=== PATIENT | female | born 1950 | race Caucasian/White ===

== ENCOUNTER 2016-09-07 16:01 | Inpatient (IN) | payer MEDICARE, OTHER ==
--- NOTE | ~2016-09-07 | CN ---
Consultation Report [facility] [address] [place]. [address] NAME: ELISA GARCIA : 48 STATUS : ADM IN PAT#: [id number] AGE: 65 ADM/REG DATE : 09/07/16 MR#: [id number] REPORT SERV DATE: 09/08/16 DICTATED BY: LARISA TALLEY IV DATE: 09/08/16 REPORT STATUS : Draft TRANSCRIBED BY: MODAlfredo DATE: 09/08/16 PULMONARY CONSULTATION. DATE OF CONSULTATION: 09/08/2016 REASON FOR REQUEST: Lung mass. HISTORY OF PRESENT ILLNESS: History obtained from the records and from the patient. Ms. Garcia is a 65-year-old female with a history of COPD; obstructive sleep apnea, on oxygen; coronary artery disease; ischemic cardiomyopathy with ejection fraction 25%; paroxysmal atrial fibrillation, on Coumadin; hypothyroidism; tobacco dependency; cerebrovascular disease; and chronic hypotension, on midodrine, who was admitted with increased shortness of breath with findings of a lung mass with obstruction of the right upper lobe. The patient has had 30 pounds of weight loss since April. She has had a cough intermittently productive of white phlegm over the last several weeks with increasing shortness of breath for the last several days. She presented to the emergency room, where she was found to have a collapse of the right upper lobe with subsequent CT scan demonstrating soft tissue density throughout the right upper lobe with a very large mediastinal adenopathy. The patient denies fevers, chills, sweats, or hemoptysis. She is on Incruse with which she is compliant daily. She uses nebulizer nightly. She does complain of recent dizziness, though no other specific neurologic problems. She does not undergo lung cancer screening chest CT scans with her most recent chest x-ray in 2014. The patient carries a diagnosis of obstructive sleep apnea, though states she was never given CPAP therapy. She is on oxygen at nighttime. PULMONARY HISTORY: Remarkable for no history of childhood asthma. She has adult COPD with PFTs demonstrating mixed restrictive and obstructive disease with her most recent PFT in 2014 demonstrating FEV1 of 1.1 L or 45% of predicted with a DLCO of 36% of predicted. She has had pneumonia in the past. She has a 75-pack year smoking history, now smoking a pack of cigarettes a day. She is up to date on the seasonal influenza vaccine though has never received the Prevnar-13 vaccination. PAST MEDICAL HISTORY: 1. Chronic obstructive pulmonary disease. 2. Obstructive sleep apnea, on oxygen. 3. Paroxysmal atrial fibrillation. 4. Coronary artery disease. 5. Ischemic cardiomyopathy with an ejection fraction of 25%. 6. Hypothyroidism. 7. Tobacco dependency. 8. Peripheral arterial disease. 9. Chronic hypotension. Consultation Report [facility] [address] [place]. [address] NAME: ELISA GARCIA : 48 STATUS : ADM IN [facility]#: [id number] AGE: 65 ADM/REG DATE : 09/07/16 MR#: [id number] REPORT SERV DATE: 09/08/16 DICTATED BY: LARISA TALLEY IV DATE: 09/08/16 REPORT STATUS : Draft TRANSCRIBED BY: PEPE DATE: 09/08/16 SURGERIES: The patient has had, 1. Cholecystectomy. 2. Appendectomy. 3. Knee surgery. 4. AICD placement. ALLERGIES: REPORTEDLY TO MORPHINE AND ASPIRIN. CURRENT MEDICATIONS: The patient is on Altace 2.5 mg twice a day, Coreg 3.125 mg twice a day, Coumadin sliding scale, DuoNebs at bedtime, heparin 5000 units q.8 hours, vancomycin per pharmacy, Maxipime 1 g q.6 hours, ProAmatine 5 mg three times a day, Protonix 40 mg daily, Spiriva one capsule daily, and Synthroid 75 mcg daily. SOCIAL HISTORY: Remarkable for the tobacco use as above. There is no alcohol or illicit drug use. She is , has four children. FAMILY HISTORY: Remarkable for mother with dementia, father with coronary artery disease, and a sister with diabetes mellitus. REVIEW OF SYSTEMS: 14 systems reviewed and pertinent positives noted above. PHYSICAL EXAMINATION: GENERAL: On physical exam, this is a moderately overweight, elderly female, in no acute distress. She is alert, awake, and oriented. VITAL SIGNS: Temperature is 96.7, pulse is 64, respiratory rate is 24, saturation 95% on 4 L, blood pressure is 176/86. HEENT: The patient is normocephalic, atraumatic. Extraocular movements are intact. Pupils react to light. Sclerae and conjunctivae normal. She has nasal cannula in place. She has a Mallampati III airway with narrowing of the posterior pharyngeal space. She is edentulous. NECK: Without any palpable lymphadenopathy or thyromegaly. CHEST: The patient has decreased breath sounds symmetrically. A prolonged expiratory phase. There are some minimal dry bibasilar inspiratory crackles. No current wheezes or rhonchi are noted. She has AICD in her left anterior chest. CARDIOVASCULAR: Jugular venous pulsations at the angle of jaw in the supine position. She has 1+ carotid upstrokes with a loud right carotid bruit. She has a regular, distant S1, S2 with a 1/6 systolic murmur at the right upper sternal border. No clear S3 is noted. Peripheral pulses are diminished. ABDOMEN: Soft and nontender. There are hypoactive bowel sounds. There is no palpable hepatosplenomegaly or mass. Surgical scars noted. EXTREMITIES: Demonstrate no cyanosis, clubbing, edema, or palpable cords. She has pneumatic compression stockings in position. NEUROLOGIC: The patient is able to move all extremities. Strength is 5-/5 and sensation intact to light touch. Consultation Report [address] [place]. [address] NAME: ELISA GARCIA RYAN : 48 STATUS : ADM IN [facility]#: [id number] AGE: 65 ADM/REG DATE : 09/07/16 MR#: [id number] REPORT SERV DATE: 09/08/16 DICTATED BY: LARISA TALLEY IV DATE: 09/08/16 REPORT STATUS : Draft TRANSCRIBED BY: PEPE DATE: 09/08/16 LABORATORY DATA: Chest x-ray demonstrates classic findings of right upper lobe collapse. The chest CT scan demonstrates some paraseptal emphysematous changes. There is density throughout the right upper lung with cut-off at the right upper lobe bronchus. There was a very large 2R and 4R lymph node mass. Initial CBC: Hemoglobin 7.6, hematocrit 24.7, platelet count was 97,000, and white blood cell count 4.3; repeat is 13.4, hematocrit 42.8, platelet count 153,000, and white count is 5.9. Transfusion was ordered, however, I am not sure that one was performed. INR is 1.2. Procalcitonin level is less than 0.05. Chemistry: Sodium 137, potassium 4.8, chloride 102, bicarb 27, BUN 18, creatinine 0.89, glucose 148, magnesium is 2.1. The remainder of the liver panel is unremarkable. TSH was 0.26. BNP is 118 and troponin was less than 0.02. ASSESSMENT AND PLAN: 1. Respiratory. The patient has an obstructing mass in the right upper lobe, which is going to represent a malignancy. Unfortunately, the patient was allowed to have breakfast, which makes the procedure today impossible. She will be scheduled for an EBUS and bronchoscopy on Sunday. She will be given prednisone 40 mg daily. Dulera will be added to her Spiriva two puffs twice a day. Spiriva will be continued at one capsule daily. Albuterol will be made as needed with DuoNebs discontinued. Oxygen will be titrated to maintain saturation in the 90% to 94% range. 2. Neurologic. Head CT scan will be obtained with her dizziness with her AICD being MRI incompatible. Habitrol patch will be given 21 mg daily for tobacco dependency. Discussed the importance of smoking cessation. 3. Hematologic. Carotid ultrasound will be obtained with a loud right carotid bruit. Cardiology will decide if heparin prophylaxis is adequate or whether they need to do bridging heparin drip, though she is currently in sinus rhythm. The initial lab was likely not accurate, but we will repeat labs tomorrow. 4. Infectious Disease. I doubt this is an infectious process and will consider discontinuation of the antibiotics. Florastor will be given while on the antibiotics. Prevnar-13 at the time of discharge. 5. Endocrinologic. The patient had elevated blood sugars, so hemoglobin A1c will be obtained. Insulin sliding scale, on steroids. 6. Cardiovascular. Per Cardiology. 7. Renal. Electrolytes are okay except we will check a phosphorus. Thank you for consulting us. We will follow the patient with you. NM/MODL Larisa Talley IV, M.D. / [id number] Consultation Report [facility] [id number] [place]. [address] NAME: ELISA GARCIA : 48 STATUS : ADM IN [facility]#: [id number] AGE: 65 ADM/REG DATE : 09/07/16 MR#: [id number] REPORT SERV DATE: 09/08/16 DICTATED BY: LARISA TALLEY IV DATE: 09/08/16 REPORT STATUS : Draft TRANSCRIBED BY: PEPE DATE: 09/08/16 CC: Alla Lisa M.D.
--- NOTE | ~2016-09-07 | CONSULT ---
Radiation Oncology Consult [facility] [id number] [place]. 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 HISTORY OF PRESENT ILLNESS: This is a very pleasant 65-year-old female with past medical history significant for tobacco abuse, COPD, chronic hypoxia on oxygen supplementation, paroxysmal atrial fibrillation, and ischemic cardiomyopathy, who presented to the emergency room with increased shortness of breath and a 30-pound weight loss. A chest x-ray demonstrated a right upper lobe atelectasis, and subsequent CT chest confirmed a soft tissue density with obstruction of the right upper lobe and mediastinal adenopathy. She subsequently underwent an EBUS by Dr. Squires on 09/12/2016. This was positive for squamous cell carcinoma, moderately differentiated in level [address] head was negative for intracranial metastases. She cannot undergo an MRI due to her pacemaker. She is referred for discussions of a definitive chemoradiation. At today's visit, the patient reports she is doing better. Her shortness of breath has improved since the stent was placed at the time of the bronchoscopy. She continues on supplemental oxygen for her chronic dyspnea. She has severe dyspnea on exertion as well as chronic shortness of breath at rest. She has a chronic intermittently productive cough with white phlegm. She denies fevers, chills, or night sweats. She denies any bone pain, headaches, or new neurologic symptoms. She has a poor appetite and a 30-pounds weight loss over the past six months. She denies any chest pain or hemoptysis. PAST MEDICAL HISTORY: 1. COPD. 2. Tobacco abuse. 3. Obstructive sleep apnea. 4. Chronic hypoxemia. 5. CAD. 6. Ischemic cardiomyopathy with 25% ejection fraction. 7. Cerebral vascular disease. 8. Hypotension. 9. Paroxysmal atrial fibrillation. 10.Pacemaker. PAST SURGICAL HISTORY: 1. Cholecystectomy. 2. Appendectomy. 3. Knee surgery. 4. ICD placement. REVIEW OF SYSTEMS: A complete and extended review of system was performed. Pertinent positives noted in the HPI. Remainder review of systems was negative. Radiation Oncology Consult [address] [place]. [address] NAME: ELISA GARCIA : 48 STATUS : ADM IN PAT#: [id number] AGE: 65 ADM/REG DATE : 09/07/16 MR#: [id number] REPORT SERV DATE: 09/19/16 DICTATED BY: RAE COY DATE: 09/18/16 REPORT STATUS : Draft TRANSCRIBED BY: PEPE DATE: 09/18/16 MEDICATIONS: Medication reconciliation has been reviewed and discussed. Please refer to inpatient chart. ALLERGIES: MORPHINE AND ASPIRIN. SOCIAL HISTORY: The patient smokes tobacco and has done so since she was a teenager. She smoked one pack per day. She denies alcohol or illicit drug use. She is and has four children. FAMILY HISTORY: The patient's mother had dementia and father had CAD. No family history of cancers. PHYSICAL EXAMINATION: ECOG performance status of 1. Pain score 0/10. VITAL SIGN: Temp 96.8, heart rate 58, respirations 16, O2 saturation 95% on 4 L. GENERAL: Well-developed female, appears older than stated age. She is seated comfortably in a wheelchair. She is accompanied by her friend. HEENT: Normocephalic. Extraocular movements intact. Moist mucous membranes. LYMPHATICS: No supraclavicular or cervical lymphadenopathy. RESPIRATORY: Nonlabored breathing. No audible wheezing. Symmetric expansion. GI: Soft, nontender, and nondistended. EXTREMITIES: No edema. Normal range of motion. NEURO: Cranial nerves intact. Gait not tested. The patient is sitting in a wheelchair. Nonfocal exam. Strength and sensation intact in all extremities. PSYCH: Verbalizes understanding of our discussion. Demonstrates appropriate insight. IMAGING: I personally the CT chest, which shows mediastinal adenopathy and a right upper lobe atelectasis with a central mass. CT head was negative for intracranial disease. PATHOLOGY: Biopsies at that time bronchoscopy with stent placement were positive for moderately differentiated squamous cell carcinoma. ASSESSMENT AND PLAN: A 65-year-old female with history of tobacco abuse and COPD, who presents with new right upper lobe squamous cell carcinoma. This is at least stage IIIA by CT. She has no evidence of intracranial disease. She understands her final staging would not be complete until she can undergo an outpatient PET-CT. I discussed the role of radiation for both stage III as definitive treatment as well as stage IV as palliative treatment. She understands she is found to have metastatic disease on PET-CT, treatment would be palliative. She also understands that stage III is curable, and we discussed that approximately 25% to 30% of patients are cured stage III disease. We discussed the standard of care including chemoradiation for approximately seven weeks. If she is found to have stage III disease, I will plan to treat the gross disease with 63 Gy in 7 weeks with concurrent chemotherapy under the care of Dr. Das. She has discussed chemotherapy with Dr. Das. I will perform a CT simulation for treatment planning purposes today. I will Radiation Oncology Consult [address] [place]. [address] NAME: ELISA GARCIA : 46 STATUS : ADM IN [facility]#: [id number] AGE: 65 ADM/REG DATE : 09/07/16 MR#: [id number] REPORT SERV DATE: 09/19/16 DICTATED BY: RAE COY DATE: 09/18/16 REPORT STATUS : Draft TRANSCRIBED BY: PEPE DATE: 09/18/16 await the PET-CT prior to making final treatment decisions. She is in agreement with this plan, and informed consent was obtained at today's visit. I appreciate the opportunity to take part in this patient's care. JTOrquidea/PEPE Rae Coy MD / [id number] CC: MD Major Sotelo II, M.D. Krishnendu Bhadra, M.D. Davey B. Daniel, M.D. Nathan Mull IV, M.D.
--- NOTE | ~2016-09-07 | CN ---
Consultation Report [facility] [address] [place]. [address] NAME: ELISA GARCIA : 46 STATUS : ADM IN [facility]#: [id number] AGE: 65 ADM/REG DATE : 09/07/16 MR#: [id number] REPORT SERV DATE: 09/13/16 DICTATED BY: MIKI DOWD DATE: 09/12/16 REPORT STATUS : Draft TRANSCRIBED BY: MODL DATE: 09/12/16 CONSULTATION DATE OF CONSULTATION: 09/12/2016 REASON FOR CONSULTATION: Locally advanced squamous cell carcinoma of the right upper lung. HISTORY OF PRESENT ILLNESS: Ms. Garcia is a 65-year-old with significant coronary artery disease, COPD, atrial fibrillation, and congestive heart failure. She has an EF of just 25% to 30%. She was admitted on 09/07/2016 after two-days of shortness of breath, 30-pounds weight loss, and a CT scan showing a large right upper lobe lung mass with peritracheal mass causing bronchial obstruction and central airway invasion. She has been on IV antibiotics for the last few days, underwent an EUS today. This showed 75% intrinsic, extrinsic compression in the right main stem bronchus. Initial pathology suggested a squamous cell carcinoma. She underwent placement of a 3 cm stent into the right mainstem bronchus. The patient says that she is already feeling significantly better. She is in bed resting at this point later in the day after the procedure. PAST MEDICAL HISTORY: COPD, obstructive airways disease, paroxysmally AFib, coronary artery disease, ischemic cardiomyopathy with an EF of 25%, hypothyroidism, tobacco dependency, peripheral artery disease. PAST SURGICAL HISTORY: AICD, knee surgery, appendectomy, and cholecystectomy. CURRENT MEDICATIONS: Atorvastatin, carvedilol, cefepime, heparin, insulin sliding scale, levothyroxine, midodrine, Nicotine, nystatin, pantoprazole, prednisone, ramipril. ALLERGIES: MORPHINE AND ASPIRIN. FAMILY HISTORY: Dementia, coronary artery disease. No lung cancer. SOCIAL HISTORY: She lives in [place]. She is a . She has multiple adult children. She has 86-bvad-ndyn smoking history. She denies any alcohol or drug abuse. PHYSICAL EXAMINATION: VITAL SIGNS: Temperature 96.8, heart rate of 58, BP 123/57. HEENT: Pupils equal, round, reactive. No oral lesions. No cervical adenopathy. LUNGS: Show slightly increased respiratory effort. No wheezes or rales. CARDIAC: AICD in place. Regular rhythm. No murmurs. ABDOMEN: Soft, nontender, nondistended. EXTREMITIES: No clubbing. No cyanosis. No edema. Compression hose are in place. LABORATORIES AND DIAGNOSTIC DATA: CT scan of the chest personally reviewed. I discussed it with the patient and her daughter. It shows a large right-sided paratracheal mass causing partial obstruction to the right mainstem bronchus. Bulky enlarged mediastinal nodes. Consultation Report [place] [id number] [facility] [place]. [address] NAME: ELISA GARCIA RYAN : 46 STATUS : ADM IN [facility]#: [id number] AGE: 65 ADM/REG DATE : 09/07/16 MR#: [id number] REPORT SERV DATE: 09/13/16 DICTATED BY: MIKI DOWD. DATE: 09/12/16 REPORT STATUS : Draft TRANSCRIBED BY: MODL DATE: 09/12/16 There is a small pleural based lesion, just 4 mm, unsure if this is disease or not. CT of the brain was normal, and reviewed personally. ASSESSMENT AND PLAN: Ms. Garcia is a 65-year-old woman with at least a stage IIIB non-small cell lung cancer squamous cell carcinoma. The Research Development Manager already ordered a PET scan. I suspect this will confirm at least mediastinal disease. Should she have distant disease, I think we will proceed with radiation initially for the stent and then palliative chemotherapy afterwards. However, if no additional disease is identified, we will plan on concurrent chemotherapy and radiation. Her functional status is somewhat limited, and therefore, I will plan on chemotherapy with weekly carboplatin and paclitaxel. Images were reviewed with the patient. Reviewed that period of therapy will be difficult given her advanced disease. DBD/MODL Miki Dowd M.D. / [id number] CC: MD Major Sotelo II, M.D. Eric Ellis, M.D. George [employer] Shaw, M.D. Krishnendu Bhadra, M.D.
--- NOTE | ~2016-09-07 | CN ---
Consultation Report [address] [place]. [address] NAME: ELISA GARCIA RYAN : 48 STATUS : ADM IN PAT#: [id number] AGE: 65 ADM/REG DATE : 09/07/16 MR#: [id number] REPORT SERV DATE: 09/12/16 DICTATED BY: FADIA SQUIRES DATE: 09/12/16 REPORT STATUS : Draft TRANSCRIBED BY: MODAlfredo DATE: 09/12/16 CONSULT DATE OF CONSULTATION: Dear Dr. Talley and Dr. Alva Gandhi: Thank you for requesting my opinion regarding evaluation and management of Ms. Elisa Garcia's central airways obstruction and right paratracheal mass. Ms. Garcia is a 65-year-old female with a significant past medical history of COPD, KALIN on chronic home O2, coronary artery disease with ischemic cardiomyopathy with a known ejection fraction of approximately 25 to 30%. Paroxysmal atrial fibrillation, on Coumadin; tobacco dependency; history of CVA; and chronic hypotension on midodrine, who presents to [facility] with worsening shortness of breath and a 30-pound weight loss since April. She complains of intermittent cough with white phlegm and increasing shortness of breath prompting admission. CT scan of the chest demonstrated a right upper lobe lung and right paratracheal large lung mass with mediastinal lymphadenopathy and central airways invasion. She currently denies any fevers, chills, night sweats, nausea, vomiting, diarrhea, or constipation. REVIEW OF SYSTEMS: A detailed 14-point review of systems was completed. Pertinent positives and negatives are listed above. PAST MEDICAL HISTORY: 1. COPD. 2. Obstructive sleep apnea, on oxygen. 3. Paroxysmal atrial fibrillation. 4. Coronary artery disease. 5. Ischemic cardiomyopathy with an EF of 25%. 6. Hypothyroidism. 7. Tobacco dependency. 8. Peripheral arterial disease. 9. Chronic hypotension on midodrine. PAST SURGICAL HISTORY: 1. Cholecystectomy. 2. Appendectomy. 3. Knee surgery. 4. AICD. ALLERGIES: MORPHINE AND ASPIRIN. Consultation Report [address] [place]. [address] NAME: ELISA GARCIA RYAN : 48 STATUS : ADM IN PAT#: [id number] AGE: 65 ADM/REG DATE : 09/07/16 MR#: [id number] REPORT SERV DATE: 09/12/16 DICTATED BY: LISADAFNEDAYTON DATE: 09/12/16 REPORT STATUS : Draft TRANSCRIBED BY: PEPE DATE: 09/12/16 HOME MEDICATIONS: Reviewed and located in the paper chart. SOCIAL HISTORY: Tobacco abuse, 75 pack-year smoking history, smoking currently a pack a day. She denies any significant alcohol or illicit drug abuse. FAMILY HISTORY: Dementia, coronary artery disease, and diabetes. PHYSICAL EXAMINATION: VITAL SIGNS: Reviewed. GENERAL: Chronically ill-appearing ashen appearance, elderly obese female. HEENT: Normocephalic and atraumatic. Pupils equal, round, and reactive to light and accommodation. Posterior oropharynx is clear. NECK: Thick neck. CARDIOVASCULAR: Regular rate and rhythm. S1, S2 present. No obvious murmurs, rubs, or clicks. LUNGS: Diminished breath sounds with wheezes, predominantly on the right. Posterior oropharynx is clear with no exudates. ABDOMEN: Protuberant. Nontender. Nondistended. Soft. Positive bowel sounds. EXTREMITIES: No clubbing, cyanosis, or edema. SKIN: No new rashes, lesions, or ulcers. PSYCHIATRIC: Alert and oriented x3. Appropriate mood and affect. Appropriate insight and judgment. NEUROLOGIC: 5/5 strength in upper and lower extremities. Cranial nerves II through XII intact. Gait not tested. DTRs not performed. DATA: 1. CT scan of the chest performed, consolidation in the left upper lobe with probable mass in the left hilar region, narrowing of the right upper lobe and right upper lobe bronchi, bronchus intermedius, and right mainstem mediastinal lymphadenopathy also noted. Minimal regular based lung nodule in the right upper lobe. 2. AICD device. ASSESSMENT AND PLAN: Ms. Elisa Garcia is a pleasant 65-year-old female with a significant past medical history of heavy tobacco abuse, coronary artery disease, and ischemic cardiomyopathy with an AF of 25 to 30% who presents to [facility] with several months of worsening shortness of breath and 30-pound of unintentional weight loss. CT scan of the chest confirmed a 4 mm pleural-based nodular density in the right upper lobe, right hilar lung mass measuring 4 x 6 cm with right mainstem and right bronchus intermedius invasion concerning for primary bronchogenic carcinoma. At this point, Ms. Elisa Garcia needs an appropriate diagnostic and therapeutic intervention. We discussed in detail potential options including CT-guided needle biopsy, thoracic surgical biopsy, or EBUS and flexible rigid bronchoscopy with possible airway stent placement. The patient is aware that the procedure is associated with potential injuries including to the mouth, lips, teeth, gums, posterior oropharynx, trachea windpipe Consultation Report [id number] [place]. [address] NAME: ELISA GARCIA : 48 STATUS : ADM IN PAT#: [id number] AGE: 65 ADM/REG DATE : 09/07/16 MR#: [id number] REPORT SERV DATE: 09/12/16 DICTATED BY: FADIA SQUIRES DATE: 09/12/16 REPORT STATUS : Draft TRANSCRIBED BY: PEPE DATE: 09/12/16 perforation of the airway, airway fire, lung collapse, and life-threatening bleeding. The patient is also aware that rigid bronchoscopy itself is associated with C-spine fracture and the patient will likely require a stent. The patient is aware that the stent placement is associated with migration fracture and can be associated with lower respiratory tract infections. RECOMMENDATIONS: Summary of my recommendations are as follows: 1. Proceed with EBUS flexible rigid bronchoscopy with airway stent placement. 2. Consult Medical Oncology pending RALPH on site path. 3. The patient will likely require radiation oncology consultation for at least palliative radiation to the area of right upper lobe obstruction. 4. If the patient has a stent placed, she will require mandatory nebulization therapy with albuterol and Mucomyst 3 times a day. Thank you for allowing me to participate in Ms. Elisa Garcia's care. MARCUS/PEPE Fadia Squires M.D. / [id number] CC: MD Major Sotelo II, M.D.
--- NOTE | ~2016-09-07 | HP ---
History And Physical [place] [address] [id number] [facility] [place]. [address] NAME: ELISA GARCIA : 48 STATUS : ADM IN [facility]#: [id number] AGE: 65 ADM/REG DATE : 09/07/16 MR#: [id number] REPORT SERV DATE: 09/07/16 DICTATED BY: CAPO MARCUS DATE: 09/07/16 REPORT STATUS : Draft TRANSCRIBED BY: MODL DATE: 09/07/16 DATE OF ADMISSION: 09/07/2016 CHIEF COMPLAINT: Cough and congestion with shortness of breath. HISTORY OF PRESENT ILLNESS: The patient is a 65-year-old female with past medical history of COPD, O2 dependent at night, continued tobacco use, coronary artery disease with CHF, and depressed ejection fraction, systolic component, additionally defibrillator seen by Dr. Leo, who reports that over the last week, she has had increasing shortness of breath, has been continuous, has had mild increase of using oxygen throughout the day. She has seen her PCP, and reports that in the office had her defibrillator shocker but did not have to go to emergency room at that time, and this is the first time she has ever been shocked by her defibrillator. Subsequently, she still had shortness of breath with cough and decreased exercise tolerance. Symptoms have been constant, moderate severity. No pressure pain, no radiating symptoms. No fevers or nausea or vomiting have been present. No chills but has had recent increase in diuretic and has held off on warfarin due to being supratherapeutic recently. No wheezing or swelling reported. The patient reports that she stopped smoking yesterday, and symptoms of shortness of breath are worsened with activity, deep exertion, and relieved only by rest and oxygen and symptoms are still currently present. The patient also is noted to have slightly low blood pressure in emergency room, but has improved after IV fluid boluses. The patient is on midodrine at home. REVIEW OF SYSTEMS: For additional review of systems, 10-point review of systems, including: GENERAL: No fevers or chills. EYES: No eye pain or visual changes. ENT: No ear pain or sore throat but does have congestion. NEURO: No headache or confusion. SKIN: She does have dry skin. No bruising. RESPIRATORY: Does have shortness of breath with dyspnea on exertion and cough. CV: No chest pain or palpitations but does have low blood pressure. : No nausea, vomiting, or diarrhea. No dark stools or hematemesis. : No dysuria, hematuria, or urgency. MUSCULOSKELETAL: No myalgias or arthralgias above baseline. ENDO: Does have some increased fatigue. No polyuria. HEME: No acute bleeding or bruising that she can recall. IMMUNOLOGIC: No rhinorrhea. PSYCH: No anxiety or confusion. PAST MEDICAL HISTORY: Systolic heart failure with EF 25% with AICD, COPD, KALIN on home O2, atrial fibrillation, hypothyroidism, pneumonia, hyperlipidemia, chronic back pain, type 2 diabetes, but not on medications diet controlled, history of pericardial effusion, CVA, orthostasis, chronic midodrine, recent bacterial infections over the last year, and continued tobacco use. SURGICAL HISTORY: Cholecystectomy, appendectomy, knee surgery, AICD with recent replacement History And Physical [address] [address] NAME: ELISA GARCIA : 48 STATUS : ADM IN [facility]#: [id number] AGE: 65 ADM/REG DATE : 09/07/16 MR#: [id number] REPORT SERV DATE: 09/07/16 DICTATED BY: CAPO MARCUS DATE: 09/07/16 REPORT STATUS : Draft TRANSCRIBED BY: PEPE DATE: 09/07/[address] Leo, tubal, and back surgery. FAMILY HISTORY: Coronary artery disease, type 2 diabetes. SOCIAL HISTORY: One pack per day with greater than 30 year smoking history. Multiple stressors in life with recent of a friend of the family at her house on June 24, and also incarceration of one daughter. No illicits or alcohol. ALLERGIES: TO MORPHINE AND ASPIRIN. HOME MEDICATIONS: Tylenol, DuoNebs, Tessalon, Symbicort, Coreg, Valium, Nexium, Lasix, Mucinex, Robitussin, [place], Synthroid, midodrine, milk of magnesia, Klor-Con, Altace, Crestor, Incruse, Jantoven which was recently held due to supratherapeutic. PHYSICAL EXAMINATION: VITAL SIGNS: The patient's initial blood pressure 75/47, now 99/60, temperature 97.2, pulse 68, respirations 16, O2 sats 90% on 2 L, 98% on 4 L. GENERAL: Elderly frail, appears older than stated age. EYES: No scleral icterus. EOMI. ENT: Dry mucous membranes. Oral mucosa with thrush. Nares patent. RESPIRATORY: Mild upper wheeze, decreased breath sounds in right lung duffy, and polyphonic lower lung duffy. CV: Regular rate. No rubs or gallops. Mildly hypotensive. No JVD, no pedal edema. GI: Soft, nontender, nondistended. Bowel sounds positive. : Deferred. MUSCULOSKELETAL: Moves all extremities x4. SKIN: Warm and dry with wrinkles on face and dry lower skin. No pedal edema. HEME: No bleeding or bruising. NEURO: Alert and oriented. Moves all extremities x4. Symmetrical strength bilaterally. Normal vocal stalin. PSYCH: Appropriate mood and affect, pleasant. DATA: EKG; normal sinus rhythm, rate of 68, QTc 438. CBC; WBC 4.3, H and H 7.6 and 24.7 recently was 12.1 in July 2015, platelets 97. ABG; pH 7.44, pCO2 44, pO2 47, bicarb 29.2, lactate 0.6. Chest PA lateral; right upper lobe collapse with probable right hilar mass, CT recommended, AICD. BNP 117.6. CMP: Sodium 137, potassium 4.4, chloride 99, BUN creatinine 13 and 0.86, bicarb 31, glucose 122, calcium 9.2, LFTs within normal limits. Troponin negative. CT chest with contrast, AICD, minimal pleural-based nodule in posterior right upper lobe. Minimal irregular linear atelectasis or fibrosis of the lingula, consolidation of left upper lobe, a probable mass in left hilar, difficult to distinguish from adjacent consolidation. There is associated narrowing of the right upper lobe, bronchi bronchus intermedius. History And Physical [address] [address] NAME: ELISA GARCIA : 48 STATUS : ADM IN [facility]#: [id number] AGE: 65 ADM/REG DATE : 09/07/16 MR#: [id number] REPORT SERV DATE: 09/07/16 DICTATED BY: CAPO MARCUS DATE: 09/07/16 REPORT STATUS : Draft TRANSCRIBED BY: MODL DATE: 03/16/17 Opacities extend to the adjacent right peritracheal and subcarinal area, further evaluation with bronch or PET-CT may be helpful. ASSESSMENT AND PLAN: 1. Likely postobstructive pneumonia. 2. Recent defibrillator shock. 3. Congestive heart failure, systolic chronic. 4. Anemia. 5. CVA history. 6. Chronic obstructive pulmonary disease. 7. Tobacco use. 8. Coronary artery disease. 9. Lung mass. 10.Hypotension. 11.Thrush. PLAN: 1. For likely postobstructive pneumonia, received Rocephin and azithromycin in the emergency room, however, given recent history of shock, unclear QTc, recent prolongation currently QTc is 438, we will try to avoid azithromycin and Levaquin until evaluated by Cardiology. We will change to vancomycin and cefepime in the presence of low blood pressures. We will have Pulmonary evaluation. CT noted for possible postobstructive component and monitor with O2 needs to stop smoking. 2. Recent defibrillator shock. Interrogate pacer. The patient used Medtronic recently, changed, notify Dr. Leo. The patient reported recent shock and confirm this with Medtronic, optimize electrolytes. 3. Systolic heart failure, compensated, has had recent diuretic increased, not in volume overload, actually slightly volume depleted. Continue TOMAS inhibitor, beta-lidia with holding parameters. Does take midodrine for blood pressure. 4. Anemia with pancytopenia, unclear as this appears new. We will transfuse 1 unit, check FOBT x3. The patient requesting blood from family and not blood bank. We will need to contact blood bank for protocol for this. 5. CVA history. Not on aspirin due to allergies. 6. COPD, O2 dependent at night. Nicotine patch. Stop smoking. 7. Tobacco use. Nicotine replacement. 8. Coronary artery disease. TOMAS inhibitor, beta lidia. 9. Lung mass CT noted, pulmonary evaluation. Positive tobacco history with greater than 30 pack year smoking. She will need Cardiac and Pulmonary evaluation. 10.Hypotension on chronic midodrine by director private per records. Holding parameters on blood pressure medications, cardiac medications. Additionally transfuse 1 unit PRBCs as the patient is also clinically volume depleted with IV fluids. 11.Thrush, nystatin. All questions answered with patient and family at bedside. Guarded due to multifactorial diseases as above discussed with family. Family requesting only son Jose and daughter Maricruz to be contacts for information. This has been expressed on chart and notified to nurse. History And Physical [address] [place] [place] [address] NAME: ELISA GARCIA : 48 STATUS : ADM IN PAT#: [id number] AGE: 65 ADM/REG DATE : 09/07/16 MR#: [id number] REPORT SERV DATE: 09/07/16 DICTATED BY: CAPO MARCUS DATE: 09/07/16 REPORT STATUS : Draft TRANSCRIBED BY: MODAlfredo DATE: 09/07/16 DDN/AUSTENL Capo Marcus MD / [id number] CC: Alla Lisa M.D.
--- NOTE | ~2016-09-07 | IDS ---
Interim Discharge Summary [facility] [address] [place]. [address] NAME: ELISA GARCIA : 48 STATUS : ADM IN [facility]#: [id number] AGE: 65 ADM/REG DATE : 09/07/16 MR#: [id number] REPORT SERV DATE: 09/19/16 DICTATED BY: SHERICE PIERRE II DATE: 09/18/16 REPORT STATUS : Draft TRANSCRIBED BY: MODL DATE: 09/18/16 ADMISSION DATE: 09/07/2016 DISCHARGE DATE: 09/18/2016 INTERIM DIAGNOSES: 1. Newly diagnosed right upper lobe squamous cell carcinoma with peritracheal mass causing bronchial obstruction and central airway invasion status post stent. 2. Atrial fibrillation with rapid ventricular response, on Coumadin. 3. Postobstructive pneumonia, finished antibiotics. 4. Chronic systolic congestive heart failure with ischemic cardiomyopathy, ejection fraction 25% status post implantable cardioverter defibrillator. 5. Chronic obstructive pulmonary disease, on nocturnal O2. 6. History of coronary artery disease. 7. History of tobacco dependency. 8. History of peripheral artery disease. 9. History of obstructive sleep apnea, on nocturnal oxygen. 10.Chronic hypotension, on midodrine. 11.Generalized weakness, debility, and morbid obesity. CONSULTS: 1. Godfrey Talley M.D. with Pulmonary. 2. Yang Leo M.D. with Cardiology. 3. Fadia Squires M.D. with Interventional Pulmonary. 4. Miki Das M.D. with [facility]. BRIEF HISTORY OF PRESENT ILLNESS: The patient is a 65-year-old female with the above history, who presented to [facility] due to cough, congestion, shortness of breath, and recent ICD shock. For detailed history and physical examination, please see Dr. Davide Hdz's note from 09/07/2016. HOSPITAL COURSE: Regarding the patient's right upper lobe lung mass that was found on admission, Pulmonary was consulted and Dr. Squires performed a bronchoscopy with biopsy and stent placement. Pathology confirmed a squamous cell carcinoma, currently at least stage IIIB. Dr. Miki Das was consulted as well as Radiation Oncology. Currently, the plan for a lung mass is to proceed with radiation to the stented area and follow up with a PET scan for evaluation of additional disease. Currently, Dr. Das is planning on chemotherapy with carboplatin and paclitaxel when she can follow up. Regarding her postobstructive pneumonia she was continued on cefepime for a total of seven days. She has been off antibiotics and stable. Regarding her AFib with RVR, and ICD shock Dr. Leo was consulted. ICD interrogation confirmed atrial fibrillation with RVR resulting in shock. She was continued on her Coreg, and actually the patient was in rate controlled normal sinus rhythm since admission; however, in the last few days she has had recurrent episodes of atrial fibrillation with RVR. Heart rate in the 150s. She was switched from Coreg to metoprolol given her hypotension. She actually seems to tolerate the metoprolol and was back in normal sinus rhythm with a heart rate in the 60s to 70s this morning, though she had brief episodes overnight. The plan was to continue her metoprolol and let her go home and Interim Discharge Summary [address] [place]. [address] NAME: ELISA GARCIA RYAN : 48 STATUS : ADM IN PAT#: [id number] AGE: 65 ADM/REG DATE : 09/07/16 MR#: [id number] REPORT SERV DATE: 09/19/16 DICTATED BY: SHERICE PIERRE II DATE: 09/18/16 REPORT STATUS : Draft TRANSCRIBED BY: PEPE DATE: 09/18/16 follow up with all of her aforementioned consultants. However, this afternoon prior to going for a CT simulation for Rad/Onc she again went back into atrial fibrillation with RVR, heart rate between 130 and 150. Her Lopressor has been increased to 25 mg p.o. b.i.d., she received a dose and her heart rate is back in sinus rhythm in the 60s. Certainly, if she continues to balance back and forth we will discuss with Cardiology again about possibly placing the patient on amiodarone. The patient did seem to be somewhat emotionally upset, at that time her heart rate went high, though her anxiety may be contributing. She was previously actually held over the weekend given her weakness and family wanted to send her to rehab; however, over the weekend she was feeling better. PT evaluated her and thought she could go home. I am hoping that she can be discharged home once her AFib with RVR is stable. She will need follow up for a PET scan and follow up with Dr. Das. Dr. Emmett Graves will take over the patient's care starting tomorrow. EMA/PEPE Sherice Pierre II, MD / [id number] CC: MD Major Sotelo II, M.D.
--- NOTE | ~2016-09-07 | DS ---
Discharge Summary [place] [address] [facility] [place]. [address] NAME: ELISA GARCIA : 48 STATUS : DIS IN PAT#: [id number] AGE: 65 ADM/REG DATE : 09/07/16 MR#: [id number] REPORT SERV DATE: 09/20/16 DICTATED BY: HARIKA GRAVES DATE: 09/19/16 REPORT STATUS : Draft TRANSCRIBED BY: MODL DATE: 09/19/16 ADMISSION DATE: 09/07/2016 DISCHARGE DATE: 09/19/2016 CHIEF COMPLAINT ON ADMISSION: Cough, congestion, shortness of breath. DISCHARGE DIAGNOSES: 1. Newly diagnosed right upper lobe squamous cell carcinoma with paratracheal mass causing bronchial obstruction with central airway invasion status post stent. 2. Atrial fibrillation with RVR, on Coumadin. 3. Postobstructive pneumonia, status post antibiotics. 4. Chronic systolic congestive heart failure with ischemic cardiomyopathy with EF of 25%, history of AICD. 5. Chronic obstructive pulmonary disease, on nocturnal oxygen. 6. History of coronary artery disease. 7. Tobacco dependency. 8. History of peripheral artery disease. 9. History of sleep apnea, on nocturnal oxygen. 10.Chronic hypotension, on midodrine. 11.Generalized weakness, debility, and obesity. CONSULTATIONS: Consults this hospitalization include: Cardiology, Pulmonary Medicine, Radiation Oncology, and Medical Oncology. HISTORY OF PRESENT ILLNESS: Please see full H and P for details regarding initial presentation by Dr. Hdz. HOSPITAL COURSE: Please see interim summary by Dr. Jose Hinton from yesterday regarding her initial course of her hospitalization. The patient's discharge was held yesterday due to Afib with RVR. This is currently improved. I have discussed with Dr. Miki Das. She will follow up with outpatient PET scan and follow up with Dr. Das. She will follow up with Pulmonary Medicine, Cardiology, and Radiation Oncology. DISCHARGE MEDICATIONS: Metoprolol 25 mg p.o. b.i.d., levothyroxine 75 mcg daily, ramipril 2.5 p.o. b.i.d., Nexium 40 mg daily, increase Ellipta 1 puff in the morning, Coumadin, midodrine 5 mg p.o. b.i.d., Symbicort 2 puffs b.i.d., guaifenesin p.r.n., DuoNeb 1 at bedtime and 4 times a day p.r.n., Tylenol p.r.n., guaifenesin p.r.n., milk of magnesia p.r.n., diazepam p.r.n., [place] p.r.n., potassium chloride 10 mEq every morning if she takes her Lasix which is p.r.n. for edema, Crestor 10 mg at bedtime, Tessalon p.r.n. FOLLOWUP: Dr. Das, Radiation Oncology and Dr. Talley as well as INR checks and outpatient PET scan. Time spent on this discharge including discussion with the patient as well as Dr. Das is greater than 30 minutes. Discharge Summary [address] [place] [place] [address] NAME: ELISA GARCIA : 48 STATUS : DIS IN PAT#: [id number] AGE: 65 ADM/REG DATE : 09/07/16 MR#: [id number] REPORT SERV DATE: 09/20/16 DICTATED BY: HARIKA GRAVES DATE: 09/19/16 REPORT STATUS : Draft TRANSCRIBED BY: PEPE DATE: 09/19/16 NELDA/PEPE Harika Graves MD / [id number]
--- NOTE | ~2016-09-07 | HP ---
History And Physical [id number] [facility] [place]. [address] NAME: ELISA GARCIA : 46 STATUS : ADM IN [facility]#: [id number] AGE: 65 ADM/REG DATE : 09/07/16 MR#: [id number] REPORT SERV DATE: 09/09/16 DICTATED BY: DALILA ESPINAL DATE: 09/09/16 REPORT STATUS : Draft TRANSCRIBED BY: MODL DATE: 09/09/16 DATE OF ADMISSION: 09/07/2016 This is a Cardiology admission H and P. HISTORY OF PRESENT ILLNESS: Ms. Garcia is a 65-year-old woman, who presents with complaints of cough and shortness of breath. She has a known history of COPD that is O2 dependent. The patient has continued tobacco abuse. She has a history of coronary disease and congestive heart failure. She is status post stent placement in the past. She has a depressed ejection fraction less than 35%. History of ventricular tachycardia, status post ICD. She also has a history of atrial fibrillation and takes anticoagulation. She has had intolerance to most antiarrhythmics in the past for treatment of the atrial fibrillation. She in addition to noting the shortness of breath, she claimed to have had an ICD shock about a week ago, and did not report this to our office. PAST MEDICAL HISTORY: 1. Notable for severe LV systolic dysfunction, class 3 congestive heart failure, with ejection fraction of 25%, status post ICD. 2. History of coronary disease, status post remote stent placement. 3. History of atrial fibrillation, paroxysmal. 4. Severe COPD on home oxygen therapy. 5. Obstructive sleep apnea. 6. History of chronic back pain. 7. Type 2 diabetes. 8. History of CVA. HOME MEDICATIONS: Albuterol nebulizers, Tessalon Perles, carvedilol 3.125 mg twice a day, Valium, Lasix 40 mg p.o. b.i.d., Mucinex, Robitussin, hydrocodone APAP, levothyroxine, midodrine, Crestor, ramipril, potassium, and warfarin. FAMILY HISTORY: Noncontributory. Negative for premature coronary disease. SOCIAL HISTORY: Continued tobacco abuse. Denies alcohol use. REVIEW OF SYSTEMS: Notable for shortness of breath and ICD shock. PHYSICAL EXAMINATION: VITAL SIGNS: Blood pressure currently of 112/56, pulse of 58, in sinus rhythm, and respirations 20. GENERAL: Well developed, well nourished. HEENT: No icterus. Good dentition. NECK: Supple. No masses or thyromegaly LUNGS: Breathing comfortably. No rales. Diffuse wheezes. COR: Normal S1, S2. No S3 or S4. No murmurs, clicks, rubs. No JVD ABD: Soft, nondistended, nontender, no hepatosplenomegaly. History And Physical [address] [address] NAME: ELISA GARCIA RYAN : 48 STATUS : ADM IN [facility]#: [id number] AGE: 65 ADM/REG DATE : 09/07/16 MR#: [id number] REPORT SERV DATE: 09/09/16 DICTATED BY: DALILA ESPINAL DATE: 09/09/16 REPORT STATUS : Draft TRANSCRIBED BY: PEPE DATE: 09/09/16 EXT: No clubbing, cyanosis or edema. Peripheral pulses 2+ or equal bilaterally. SKIN: Warm and dry. No visible lesions. MS: Chest wall without deformity, no obvious clavicular fractures. NEURO/PSYCH: Oriented x3. No anxiety or depression. LABORATORY DATA: Electrolytes, BUN, creatinine, and white blood cell count all within normal limits. H and H within normal limits. INR is subtherapeutic. CT of the chest showed a pleural-based nodule, right upper lobe, probable mass in the left hilar region, possible post obstructive pneumonia. IMPRESSION: 1. Lung mass, possible post obstructive pneumonia. The patient with long standing chronic obstructive pulmonary disease and continued tobacco use. 2. Recent ICD shock. Her ICD was interrogated and demonstrated atrial fibrillation with rapid ventricular response that resulted in ICD shock. Continue to monitor. Holding anticoagulation. Given plans for a lung biopsy this coming Sunday with bronchoscopy. 3. Chronic congestive heart failure. Exam and laboratories indicate that this is stable at this time. 4. Coronary disease appears to be stable. 5. Chronic obstructive pulmonary disease, continue treatment. GREGORY/PEPE Dalila Espinal M.D. / [id number] CC: MD Major Jenkins M.D.
--- NOTE | ~2016-09-07 | EGD ---
EGD REPORT [facility] [address] [address] NAME: ELISA GARCIA : 48 STATUS : ADM IN PAT#: [id number] AGE: 65 ADM/REG DATE : 09/07/16 MR#: [id number] REPORT SERV DATE: 09/12/16 DICTATED BY: ROSIE GONZALEZ DATE: 09/12/16 REPORT STATUS : Draft TRANSCRIBED BY: [facility] DATE: 09/12/16 Pulmonology Patient Name: Elisa Garcia Procedure Date: 09/12/2016 9:45 AM Date of : 1950 Attending MD: DAFNE GONZALEZ MD Procedure Date No Time: 09/12/2016 Procedure: Flexible Rigid and EBUS bronchoscopy with airway stent placement Indications: Right paratracheal lung mass, central airways obstruction of the SADIE and RBI Providers: DAFNE GONZALEZ MD Referring MD: LARISA FERRARI IV, CHRISTOPHER LYONS MD Medicines: Lidocaine 2% 20 mL; topical epinephrine 20 ccs Complications: No immediate complications Procedure: Pre-Anesthesia Assessment: - A History and Physical has been performed. Patient meds and allergies have been reviewed. The risks and benefits of the procedure and the sedation options and risks were discussed with the patient. All questions were answered and informed consent was obtained. Patient identification and proposed procedure were verified prior to the procedure by the physician and the nurse in the procedure room. Mental Status Examination: alert and oriented. Airway Examination: normal oropharyngeal airway. Respiratory Examination: poor air movement and expiratory wheezes. CV Examination: normal and RRR, no murmurs, no S3 or S4. ASA Grade Assessment: IV - A patient with severe systemic disease that is a constant threat to life. After reviewing the risks and benefits, the patient was deemed in satisfactory condition to undergo the procedure. The anesthesia plan was to use general anesthesia. Immediately prior to administration of medications, the patient was re-assessed for adequacy to receive sedatives. The heart rate, respiratory rate, oxygen saturations, blood pressure, adequacy of pulmonary ventilation, and response to care were monitored throughout the procedure. The physical status of the patient was re-assessed after the procedure. After obtaining informed consent, the BF [id number] was introduced through the mouth, via the endotracheal tube (the patient was intubated for the procedure) and advanced to the tracheobronchial tree. the Bronchoscope was introduced through the mouth, via the endotracheal tube (the patient was intubated for the procedure) and EGD REPORT [address] [address] NAME: ELISA GARCIA RYAN : 48 STATUS : ADM IN PAT#: [id number] AGE: 65 ADM/REG DATE : 09/07/16 MR#: [id number] REPORT SERV DATE: 09/12/16 DICTATED BY: ROSIE GONZALEZ DATE: 09/12/16 REPORT STATUS : Draft TRANSCRIBED BY: [employer] DATE: 09/12/16 advanced to the tracheobronchial tree. The procedure was accomplished without difficulty. The patient tolerated the procedure well. Findings: The endotracheal tube is in good position. The visualized portion of the trachea is of normal caliber. The aaron is sharp. The tracheobronchial tree was examined to at least the first subsegmental level. Approximately 75 % intrinsic and extrinsic compression of the SADIE and RBI. EBUS TBNA of lymph node level 11L x 4 passes for cytology EBUS TBNA of lymph node level 7 x 4 passes for cytology EBUS TBNA of lymph node level 4R x 6 passes for cytology Bronchoalveolar lavage was performed in the right upper lobe of the lung and sent for routine cytology. 60 mL of fluid were instilled. 40 mL were returned. The return was blood-tinged. Brushings were obtained in the right mainstem bronchus of the lung and sent for routine cytology. One sample was obtained. Endobronchial biopsies were performed in the right mainstem bronchus of the lung using a forceps and sent for histopathology examination. Five samples were obtained. The patient was then reintubated with a rigid Dumon 12 mm bronchoscope in the usual atraumatic fashion and selectively advanced into the proximal SADIE. Balloon bronchoplasty was performed with a CRE balloon 8-9-10 to 10 mm OD. Argon plasma coagulation (0.8 L/min, 15 Thomas) was performed in the SADIE and RBI for destruction of tissue (tumor). Using the rigid telescope side saddle, a 12 x 30 mm AERO stent was was deployed into the SADIE and RBI jailing off the RUL. Pictures were taken at the close of the case. Impression: Rapid On-Site Evaluation (RALPH): Preliminary cytology is POSITIVE for squamous cell carcinoma (final results are pending). 12 x 30 mm AERO stent was was deployed into the SADIE and RBI jailing off the RUL. Pictures were taken at the close of the case. Recommendation: - Await test results. - Chest X-ray. - CT (computed tomography) scan of the head with contrast and without - PET scan as outpatient - Medical oncology consult (notified) - Radiation oncology consult - Daughter is aware of the preliminary diagnosis - Mandatory nebulization therapy with albuterol and mucomyst. See orders and home prescriptions. Attending Participation: I personally performed the entire procedure. EGD REPORT [address] [address] NAME: ELISA GARCIA RYAN : 48 STATUS : ADM IN [facility]#: [id number] AGE: 65 ADM/REG DATE : 09/07/16 MR#: [id number] REPORT SERV DATE: 09/12/16 DICTATED BY: ROSIE GONZALEZ DATE: 09/12/16 REPORT STATUS : Draft TRANSCRIBED BY: [employer] DATE: 09/12/16 DAFNE GONZALEZ MD 09/12/2016 11:59 AM This report has been signed electronically. Number of Addenda: 0 Note Initiated On: 09/12/2016 9:45 AM
[2016-09-07 14:36] LABS: BASOPHILS 0.2 %; BASOPHILS ABSOLUTE 0.01 10/3/uL (0.0-0.16); EOSINOPHILS 0.9 %; EOSINOPHILS ABSOLUTE 0.04 10/3/uL (0.0-0.53); IMMATURE GRANULOCYTES 0.2 %; IMMATURE GRANULOCYTES ABSOLUTE 0.01 10/3/uL (0.0-0.11); LYMPHOCYTES 22.3 %; LYMPHOCYTES ABSOLUTE 0.95 10/3/uL (0.67-4.30); MEAN CORPUS HGB CONC 30.8 g/dL (32.0-36.0); MEAN CORPUSCULAR HEMOGLOB 27.3 pg (26.0-34.0); MEAN PLATELET VOLUME 9.7 fL (9.2-13.0); MONOCYTES 9.9 %; MONOCYTES ABSOLUTE 0.42 10/3/uL (0.21-1.20); NEUTROPHILS 66.5 %; NEUTROPHILS ABSOLUTE 2.83 10/3/uL (2.02-8.40); RBC DISTRIBUTION WIDTH 15.2 % (12.0-16.0); WHITE BLOOD CELLS 4.3 10/3/uL (4.5-10.5)
[2016-09-07 14:37] LABS: HEMATOCRIT 24.7 % (36.0-48.0); HEMOGLOBIN 7.6 g/dL (12.0-16.0); MANUAL DIFF NO %; MEAN CORPUSCULAR VOLUME 88.8 fL (80-100); PLATELET COUNT 97 10/3/uL (150-400); RED CELL COUNT 2.78 10/6/uL (4.0-5.6)
[2016-09-07 14:49] LABS: INSTRUMENT SERIAL # 8087; pH 7.44 (7.37-7.43)
[2016-09-07 14:50] LABS: BE (BASE EXCESS) 4.4 MEQ/L (0 +/- 2.5); CARBOXYHEMOGLOBIN 2.2 % (0-3); DEVICE NC; HCO3 (ACTUAL BICARBONATE) 29.2 MEQ/L (23-27); HEMOBLOGIN CONTENT 14.5 G/DL (12-16); METHEMOGLOBIN 0.2 % (0-3); O2 CONTENT 16.9 VOL% (18-24); PCO2 (CO2 TENSION) 44 MMHG (35-45); PO2 (O2 TENSION) 47 MMHG (79-93); SAMPLE Arterial
[2016-09-07 14:54] LABS: LACTATE 0.6 MMOL/L (0.3-2.4)
[2016-09-07 15:37] LABS: A/G RATIO 0.6 (0.7-1.9); ALBUMIN 2.7 G/DL (3.5-5.0); ALKALINE PHOSPHATASE 95 U/L (45-117); BUN (BLOOD UREA NITROGEN) 13 MG/DL (6-23); CALCIUM, SERUM 9.2 MG/DL (8.5-10.4); CHLORIDE, SERUM 99 MMOL/L (96-112); CO2 (CARBON DIOXIDE) 31 MMOL/L (24-34); CREATININE 0.86 MG/DL (0.55-1.02); GFR AFRICAN AMERICAN 81 ML/MIN (>=60); GFR NON AFRICAN AMERICAN 70 ML/MIN (>=60); GLUCOSE, SERUM 122 MG/DL (60-99); POTASSIUM, SERUM 4.4 MMOL/L (3.5-5.3); SGOT(AST) 12 U/L (5-40); SGPT(ALT) 12 U/L (5-65); SODIUM, SERUM 137 MMOL/L (135-148); TOTAL BILIRUBIN 0.5 MG/DL (0-1.2); TOTAL PROTEIN 7.6 G/DL (6.0-8.5); TROPONIN I <0.02 NG/ML (<0.05)
[2016-09-07 15:38] LABS: GLOBULIN 4.9 G/DL (2.5-4.1)
[~2016-09-07 16:01] MED LIST: ACET500CAP PO; ALTA2.5 PO; AMOXIL500 MG PO; AMOXIL500C PO; AMPICILLIN IV; ASAB PO; AT25 PO; ATROVENT HFA17 MCG INH; ATROVENTUD INH; BUM2 PO; C25 PO; C5 PO; CATAFLAM50 MG PO; COMBIVENT INH; CORDARONE PO; COREG3 PO; COUMADIN4 MG PO; CRESTOR10 PO; DEMA20 PO; DIGITEK0.125 MG PO; DUONEB INH; FLONASE NAS; GGDM5ML PO; GGEXPUD PO; HUMI PO; INCRUSE ELLI62.5 MCG INH; JANTOVEN2.5 MG PO; JANTOVEN5 MG PO; KDUR10 PO; KDUR20 PO; KLOR-CON 1010 MEQ PO; KLOR-CON M1010 MEQ PO; KLOR-CON M2020 MEQ PO; L20 PO; L40 PO; LAN125 PO; LEVOTHROID150 MCG PO; LEVOTHROID175 MCG PO; LEVOTHYROXIN100 MCG PO; LEVOTHYROXIN150 MCG PO; LEVOTHYROXIN50 MCG PO; LOP25 PO; LORTAB 5 PO; LORTAB10 PO; MAGOX4 PO; MCZ25 PO; MIRALAXPKT PO; MOMUD PO; MONODOX100 MG PO; MUCINEX; MUCINEX600 MG PO; NEUR300 PO; NEXIUM40 PO; NORCO1 TAB PO; P10; P10 PO; P20; P20 PO; PACERONE200 MG PO; PLAVIX PO; PRAVAC PO; PRIN10 PO; PRIN2.5 PO; PRIN5 PO; PROAIR HFA INH; PROAM25 PO; PROAMAT5 PO; PROTONIX PO; REQUIP25 PO; REQUIP5 PO; SOMATAB PO; SPIRIVA INH; STEROID INJECTION IM; SYMBICORT 160/41 INH INH; SYN.05 PO; SYN.15 PO; SYN075 PO; SYN1 PO; T PO; TESS PO; TESSALON200 MG PO; TOPXL25 PO; TYLENOL ARTH650 MG PO; ULTRAM50 PO; V5 PO; VALIUM10 MG PO; VICODINTAB PO; ZANTAC150 MG PO; ZOCOR10 PO
[2016-09-07 22:35] LABS: RETICULOCYTE COUNT 1.4 % (0.5-2.5); RETICULOCYTE COUNT ABSOLUTE 40.3 10/3/uL (20.2-119.8)
[2016-09-07 23:07] LABS: RETICULOCYTE COUNT 1.2 % (0.5-2.5); RETICULOCYTE COUNT ABSOLUTE 58.3 10/3/uL (20.2-119.8)
[2016-09-07 23:25] LABS: LACTATE 1.6 MMOL/L (0.3-2.4)
[2016-09-07 23:31] LABS: TROPONIN I <0.02 NG/ML (<0.05)
[2016-09-08 02:18] LABS: PROCALCITONIN <0.05 ng/mL (<0.5)
[2016-09-08 06:01] LABS: INTERNATIONAL NORMAL RATI 1.2 UNITS (-)
[2016-09-08 06:09] LABS: BASOPHILS 0.2 %; BASOPHILS ABSOLUTE 0.01 10/3/uL (0.0-0.16); EOSINOPHILS 0 %; IMMATURE GRANULOCYTES 0.2 %; IMMATURE GRANULOCYTES ABSOLUTE 0.01 10/3/uL (0.0-0.11); LYMPHOCYTES 12.8 %; LYMPHOCYTES ABSOLUTE 0.75 10/3/uL (0.67-4.30); MEAN CORPUS HGB CONC 31.2 g/dL (32.0-36.0); MEAN CORPUSCULAR HEMOGLOB 27.3 pg (26.0-34.0); MEAN CORPUSCULAR VOLUME 87.6 fL (80-100); MEAN PLATELET VOLUME 10.5 fL (9.2-13.0); MONOCYTES 4.1 %; MONOCYTES ABSOLUTE 0.24 10/3/uL (0.21-1.20); NEUTROPHILS 82.7 %; NEUTROPHILS ABSOLUTE 4.86 10/3/uL (2.02-8.40); RBC DISTRIBUTION WIDTH 15.2 % (12.0-16.0); WHITE BLOOD CELLS 5.9 10/3/uL (4.5-10.5)
[2016-09-08 06:17] LABS: HEMATOCRIT 42.9 % (36.0-48.0); HEMOGLOBIN 13.4 g/dL (12.0-16.0); PLATELET COUNT 153 10/3/uL (150-400)
[2016-09-08 06:18] LABS: A/G RATIO 0.5 (0.7-1.9); ALBUMIN 2.3 G/DL (3.5-5.0); CALCIUM, SERUM 9.1 MG/DL (8.5-10.4); CHLORIDE, SERUM 102 MMOL/L (96-112); CO2 (CARBON DIOXIDE) 27 MMOL/L (24-34); CREATININE 0.89 MG/DL (0.55-1.02); GFR AFRICAN AMERICAN 78 ML/MIN (>=60); GFR NON AFRICAN AMERICAN 67 ML/MIN (>=60); GLOBULIN 4.7 G/DL (2.5-4.1); POTASSIUM, SERUM 4.8 MMOL/L (3.5-5.3); SGOT(AST) 11 U/L (5-40); SGPT(ALT) 9 U/L (5-65); SODIUM, SERUM 137 MMOL/L (135-148); TOTAL BILIRUBIN 0.4 MG/DL (0-1.2)
[2016-09-08 06:19] LABS: MANUAL DIFF NO %
[2016-09-08 06:21] LABS: ALKALINE PHOSPHATASE 77 U/L (45-117); BUN (BLOOD UREA NITROGEN) 18 MG/DL (6-23); GLUCOSE, SERUM 148 MG/DL (60-99)
[2016-09-08 09:19] LABS: TROPONIN I <0.02 NG/ML (<0.05)
[2016-09-08 11:54] LABS: PHOSPHORUS, SERUM 3.2 MG/DL (2.5-4.5)
[2016-09-09 06:34] LABS: INTERNATIONAL NORMAL RATI 1.3 UNITS (-); PROTIME (NOT ORD) 15.7 SEC (12.0-14.5)
[2016-09-09 06:35] LABS: BASOPHILS 0 %; EOSINOPHILS 0 %; HEMATOCRIT 40.1 % (36.0-48.0); HEMOGLOBIN 12.6 g/dL (12.0-16.0); IMMATURE GRANULOCYTES 0.2 %; IMMATURE GRANULOCYTES ABSOLUTE 0.02 10/3/uL (0.0-0.11); LYMPHOCYTES 11.4 %; LYMPHOCYTES ABSOLUTE 0.94 10/3/uL (0.67-4.30); MEAN CORPUS HGB CONC 31.4 g/dL (32.0-36.0); MEAN CORPUSCULAR HEMOGLOB 27.6 pg (26.0-34.0); MEAN CORPUSCULAR VOLUME 87.7 fL (80-100); MEAN PLATELET VOLUME 10.1 fL (9.2-13.0); MONOCYTES 6.8 %; MONOCYTES ABSOLUTE 0.56 10/3/uL (0.21-1.20); NEUTROPHILS 81.6 %; NEUTROPHILS ABSOLUTE 6.73 10/3/uL (2.02-8.40); PLATELET COUNT 158 10/3/uL (150-400); RBC DISTRIBUTION WIDTH 15.3 % (12.0-16.0); RED CELL COUNT 4.57 10/6/uL (4.0-5.6)
[2016-09-09 06:41] LABS: ALBUMIN 2.1 G/DL (3.5-5.0); BUN (BLOOD UREA NITROGEN) 20 MG/DL (6-23); CALCIUM, SERUM 8.8 MG/DL (8.5-10.4); CHLORIDE, SERUM 103 MMOL/L (96-112); CO2 (CARBON DIOXIDE) 29 MMOL/L (24-34); CREATININE 0.75 MG/DL (0.55-1.02); GFR AFRICAN AMERICAN 96 ML/MIN (>=60); GFR NON AFRICAN AMERICAN 82 ML/MIN (>=60); GLUCOSE, SERUM 106 MG/DL (60-99); MANUAL DIFF NO %; PHOSPHORUS, SERUM 3.2 MG/DL (2.5-4.5); POTASSIUM, SERUM 4.1 MMOL/L (3.5-5.3); SODIUM, SERUM 139 MMOL/L (135-148); WHITE BLOOD CELLS 8.3 10/3/uL (4.5-10.5)
[2016-09-10 07:35] LABS: INTERNATIONAL NORMAL RATI 1.1 UNITS (-); PROTIME (NOT ORD) 13.6 SEC (12.0-14.5)
[2016-09-11 17:53] LABS: PARTIAL THROMBO TIME 28.1 SEC (22.5-37.2)
[2016-09-12 08:24] LABS: BASOPHILS 0.1 %; BASOPHILS ABSOLUTE 0.01 10/3/uL (0.0-0.16); EOSINOPHILS 0.2 %; EOSINOPHILS ABSOLUTE 0.02 10/3/uL (0.0-0.53); HEMATOCRIT 39.1 % (36.0-48.0); HEMOGLOBIN 12.4 g/dL (12.0-16.0); IMMATURE GRANULOCYTES 0.7 %; IMMATURE GRANULOCYTES ABSOLUTE 0.06 10/3/uL (0.0-0.11); LYMPHOCYTES 20.8 %; LYMPHOCYTES ABSOLUTE 1.74 10/3/uL (0.67-4.30); MEAN CORPUS HGB CONC 31.7 g/dL (32.0-36.0); MEAN CORPUSCULAR HEMOGLOB 27.7 pg (26.0-34.0); MEAN CORPUSCULAR VOLUME 87.3 fL (80-100); MEAN PLATELET VOLUME 10.3 fL (9.2-13.0); MONOCYTES 12.1 %; MONOCYTES ABSOLUTE 1.01 10/3/uL (0.21-1.20); NEUTROPHILS 66.1 %; NEUTROPHILS ABSOLUTE 5.54 10/3/uL (2.02-8.40); PLATELET COUNT 166 10/3/uL (150-400); RBC DISTRIBUTION WIDTH 15.7 % (12.0-16.0); RED CELL COUNT 4.48 10/6/uL (4.0-5.6); WHITE BLOOD CELLS 8.4 10/3/uL (4.5-10.5)
[2016-09-12 08:25] LABS: MANUAL DIFF NO %
[2016-09-12 08:40] LABS: CALCIUM, SERUM 9.4 MG/DL (8.5-10.4); CHLORIDE, SERUM 104 MMOL/L (96-112); CO2 (CARBON DIOXIDE) 31 MMOL/L (24-34); CREATININE 0.71 MG/DL (0.55-1.02); GFR AFRICAN AMERICAN 102 ML/MIN (>=60); GFR NON AFRICAN AMERICAN 88 ML/MIN (>=60); POTASSIUM, SERUM 4.1 MMOL/L (3.5-5.3); SODIUM, SERUM 142 MMOL/L (135-148)
[2016-09-12 08:43] LABS: BUN (BLOOD UREA NITROGEN) 15 MG/DL (6-23); GLUCOSE, SERUM 73 MG/DL (60-99)
[2016-09-13 07:17] LABS: BASOPHILS 0 %; EOSINOPHILS 0 %; HEMATOCRIT 40.3 % (36.0-48.0); HEMOGLOBIN 12.6 g/dL (12.0-16.0); IMMATURE GRANULOCYTES 0.7 %; IMMATURE GRANULOCYTES ABSOLUTE 0.06 10/3/uL (0.0-0.11); LYMPHOCYTES 12.9 %; LYMPHOCYTES ABSOLUTE 1.09 10/3/uL (0.67-4.30); MANUAL DIFF NO %; MEAN CORPUS HGB CONC 31.3 g/dL (32.0-36.0); MEAN CORPUSCULAR HEMOGLOB 27.9 pg (26.0-34.0); MEAN CORPUSCULAR VOLUME 89.4 fL (80-100); MONOCYTES 11.9 %; NEUTROPHILS 74.5 %; NEUTROPHILS ABSOLUTE 6.27 10/3/uL (2.02-8.40); PLATELET COUNT 145 10/3/uL (150-400); RBC DISTRIBUTION WIDTH 15.6 % (12.0-16.0); RED CELL COUNT 4.51 10/6/uL (4.0-5.6); WHITE BLOOD CELLS 8.4 10/3/uL (4.5-10.5)
[2016-09-13 07:21] LABS: PROTIME (NOT ORD) 13.1 SEC (12.0-14.5)
[2016-09-13 07:29] LABS: BUN (BLOOD UREA NITROGEN) 16 MG/DL (6-23); CALCIUM, SERUM 9.3 MG/DL (8.5-10.4); CHLORIDE, SERUM 101 MMOL/L (96-112); CO2 (CARBON DIOXIDE) 29 MMOL/L (24-34); CREATININE 0.71 MG/DL (0.55-1.02); GFR AFRICAN AMERICAN 102 ML/MIN (>=60); GFR NON AFRICAN AMERICAN 88 ML/MIN (>=60); GLUCOSE, SERUM 127 MG/DL (60-99); POTASSIUM, SERUM 4.5 MMOL/L (3.5-5.3); SODIUM, SERUM 138 MMOL/L (135-148)
[2016-09-13 16:36] LABS: ASCORBIC ACID (UR NOT ORDER) NEG (NEG); BILIRUBIN, URINE NEGATIVE (NEG); KETONE, URINE TRACE MG/DL (NEG); LEUKOCYTE ESTERASE(NOT OR SMALL (NEG); WBC (NOT ORDERED) (RFLEX) 7 (0-5)
[2016-09-14 06:27] LABS: INTERNATIONAL NORMAL RATI 1.1 UNITS (-); PROTIME (NOT ORD) 14.2 SEC (12.0-14.5)
[2016-09-15 08:00] LABS: INTERNATIONAL NORMAL RATI 1.1 UNITS (-); PROTIME (NOT ORD) 14.3 SEC (12.0-14.5)
[2016-09-15 13:04] LABS: BASOPHILS 0.1 %; BASOPHILS ABSOLUTE 0.01 10/3/uL (0.0-0.16); EOSINOPHILS 0.5 %; EOSINOPHILS ABSOLUTE 0.04 10/3/uL (0.0-0.53); HEMATOCRIT 40.3 % (36.0-48.0); HEMOGLOBIN 12.8 g/dL (12.0-16.0); IMMATURE GRANULOCYTES 0.8 %; IMMATURE GRANULOCYTES ABSOLUTE 0.07 10/3/uL (0.0-0.11); LYMPHOCYTES 12.9 %; LYMPHOCYTES ABSOLUTE 1.14 10/3/uL (0.67-4.30); MEAN CORPUS HGB CONC 31.8 g/dL (32.0-36.0); MEAN CORPUSCULAR HEMOGLOB 28.2 pg (26.0-34.0); MEAN CORPUSCULAR VOLUME 88.8 fL (80-100); MEAN PLATELET VOLUME 10.1 fL (9.2-13.0); MONOCYTES 14.8 %; NEUTROPHILS 70.9 %; NEUTROPHILS ABSOLUTE 6.25 10/3/uL (2.02-8.40); PLATELET COUNT 125 10/3/uL (150-400); RBC DISTRIBUTION WIDTH 15.6 % (12.0-16.0); RED CELL COUNT 4.54 10/6/uL (4.0-5.6); WHITE BLOOD CELLS 8.8 10/3/uL (4.5-10.5)
[2016-09-15 13:14] LABS: MANUAL DIFF NO %
[2016-09-15 13:15] LABS: BUN (BLOOD UREA NITROGEN) 13 MG/DL (6-23); CALCIUM, SERUM 9.2 MG/DL (8.5-10.4); CHLORIDE, SERUM 103 MMOL/L (96-112); CO2 (CARBON DIOXIDE) 29 MMOL/L (24-34); CREATININE 0.67 MG/DL (0.55-1.02); GFR AFRICAN AMERICAN 105 ML/MIN (>=60); GFR NON AFRICAN AMERICAN 91 ML/MIN (>=60); GLUCOSE, SERUM 102 MG/DL (60-99); POTASSIUM, SERUM 4.5 MMOL/L (3.5-5.3); SODIUM, SERUM 137 MMOL/L (135-148)
[2016-09-16 06:12] LABS: HEMATOCRIT 39.1 % (36.0-48.0); HEMOGLOBIN 12.3 g/dL (12.0-16.0); MEAN CORPUS HGB CONC 31.5 g/dL (32.0-36.0); MEAN CORPUSCULAR HEMOGLOB 28.3 pg (26.0-34.0); MEAN CORPUSCULAR VOLUME 89.9 fL (80-100); MEAN PLATELET VOLUME 10.5 fL (9.2-13.0); PLATELET COUNT 137 10/3/uL (150-400); RBC DISTRIBUTION WIDTH 15.6 % (12.0-16.0); RED CELL COUNT 4.35 10/6/uL (4.0-5.6); WHITE BLOOD CELLS 8.6 10/3/uL (4.5-10.5)
[2016-09-16 06:17] LABS: INTERNATIONAL NORMAL RATI 1.4 UNITS (-)
[2016-09-16 06:20] LABS: PROTIME (NOT ORD) 16.9 SEC (12.0-14.5)
[2016-09-16 06:32] LABS: BUN (BLOOD UREA NITROGEN) 13 MG/DL (6-23); CALCIUM, SERUM 9.6 MG/DL (8.5-10.4); CHLORIDE, SERUM 103 MMOL/L (96-112); CO2 (CARBON DIOXIDE) 29 MMOL/L (24-34); CREATININE 0.65 MG/DL (0.55-1.02); GFR AFRICAN AMERICAN 106 ML/MIN (>=60); GFR NON AFRICAN AMERICAN 92 ML/MIN (>=60); GLUCOSE, SERUM 94 MG/DL (60-99); POTASSIUM, SERUM 4.8 MMOL/L (3.5-5.3); SODIUM, SERUM 138 MMOL/L (135-148)
[2016-09-16 06:42] LABS: MANUAL DIFF YES %
[2016-09-16 07:14] LABS: LYMPHOCYTES 21 %; LYMPHOCYTES ABSOLUTE (CALC) 1.81 10/3/uL (0.67-4.30); MONOCYTES 12 %; MONOCYTES ABSOLUTE (CALC) 1.03 10/3/uL (0.21-1.20); NEUTROPHILS ABSOLUTE (CALC) 5.76 10/3/uL (2.02-8.40); PLATELET ESTIMATE SLT DEC (ADEQUATE); RBC MORPHOLOGY NORM (NORMAL); SEGMENTED NEUTROPHIL (0) 67 %; TOTAL NUCLEATED CELLS 100
[2016-09-17 07:07] LABS: INTERNATIONAL NORMAL RATI 1.4 UNITS (-); PROTIME (NOT ORD) 17.1 SEC (12.0-14.5)
[2016-09-18 08:02] LABS: BASOPHILS 0.2 %; BASOPHILS ABSOLUTE 0.01 10/3/uL (0.0-0.16); EOSINOPHILS 1.6 %; EOSINOPHILS ABSOLUTE 0.08 10/3/uL (0.0-0.53); HEMATOCRIT 37.6 % (36.0-48.0); HEMOGLOBIN 11.8 g/dL (12.0-16.0); IMMATURE GRANULOCYTES 1.2 %; IMMATURE GRANULOCYTES ABSOLUTE 0.06 10/3/uL (0.0-0.11); LYMPHOCYTES 21.2 %; LYMPHOCYTES ABSOLUTE 1.09 10/3/uL (0.67-4.30); MEAN CORPUS HGB CONC 31.4 g/dL (32.0-36.0); MEAN CORPUSCULAR HEMOGLOB 28.1 pg (26.0-34.0); MEAN CORPUSCULAR VOLUME 89.5 fL (80-100); MEAN PLATELET VOLUME 9.6 fL (9.2-13.0); MONOCYTES ABSOLUTE 0.77 10/3/uL (0.21-1.20); NEUTROPHILS 60.8 %; NEUTROPHILS ABSOLUTE 3.14 10/3/uL (2.02-8.40); PLATELET COUNT 147 10/3/uL (150-400); RBC DISTRIBUTION WIDTH 15.6 % (12.0-16.0); WHITE BLOOD CELLS 5.2 10/3/uL (4.5-10.5)
[2016-09-18 08:03] LABS: MANUAL DIFF NO %
[2016-09-18 08:09] LABS: INTERNATIONAL NORMAL RATI 1.5 UNITS (-); PROTIME (NOT ORD) 17.7 SEC (12.0-14.5)
[2016-09-18 08:20] LABS: BUN (BLOOD UREA NITROGEN) 12 MG/DL (6-23); CALCIUM, SERUM 9.2 MG/DL (8.5-10.4); CHLORIDE, SERUM 102 MMOL/L (96-112); CO2 (CARBON DIOXIDE) 31 MMOL/L (24-34); CREATININE 0.54 MG/DL (0.55-1.02); GFR AFRICAN AMERICAN 113 ML/MIN (>=60); GFR NON AFRICAN AMERICAN 98 ML/MIN (>=60); GLUCOSE, SERUM 89 MG/DL (60-99); POTASSIUM, SERUM 4.7 MMOL/L (3.5-5.3); SODIUM, SERUM 139 MMOL/L (135-148)
[2016-09-18] MEDS ORDERED: LOP25 PO (12:41)
[2016-09-18] MEDS ORDERED: MUCO10%10 INH (12:47)
[2016-09-18] MEDS ORDERED: ALBUTEROL0.083 % INH (12:48)
[2016-09-19 06:40] LABS: INTERNATIONAL NORMAL RATI 1.6 UNITS (-)
[2016-09-19 06:42] LABS: BASOPHILS 0.4 %; BASOPHILS ABSOLUTE 0.02 10/3/uL (0.0-0.16); EOSINOPHILS 1.6 %; EOSINOPHILS ABSOLUTE 0.08 10/3/uL (0.0-0.53); HEMATOCRIT 38.2 % (36.0-48.0); IMMATURE GRANULOCYTES 1.2 %; IMMATURE GRANULOCYTES ABSOLUTE 0.06 10/3/uL (0.0-0.11); LYMPHOCYTES 22.7 %; MANUAL DIFF NO %; MEAN CORPUS HGB CONC 31.4 g/dL (32.0-36.0); MEAN CORPUSCULAR VOLUME 89.3 fL (80-100); MEAN PLATELET VOLUME 10.2 fL (9.2-13.0); MONOCYTES 16.1 %; MONOCYTES ABSOLUTE 0.78 10/3/uL (0.21-1.20); NEUTROPHILS ABSOLUTE 2.81 10/3/uL (2.02-8.40); PLATELET COUNT 153 10/3/uL (150-400); RBC DISTRIBUTION WIDTH 15.8 % (12.0-16.0); RED CELL COUNT 4.28 10/6/uL (4.0-5.6); WHITE BLOOD CELLS 4.9 10/3/uL (4.5-10.5)
[2016-09-19 06:47] LABS: BUN (BLOOD UREA NITROGEN) 11 MG/DL (6-23); CALCIUM, SERUM 9.4 MG/DL (8.5-10.4); CHLORIDE, SERUM 103 MMOL/L (96-112); CO2 (CARBON DIOXIDE) 30 MMOL/L (24-34); CREATININE 0.52 MG/DL (0.55-1.02); GFR AFRICAN AMERICAN 115 ML/MIN (>=60); GFR NON AFRICAN AMERICAN 99 ML/MIN (>=60); GLUCOSE, SERUM 81 MG/DL (60-99); POTASSIUM, SERUM 4.8 MMOL/L (3.5-5.3); SODIUM, SERUM 140 MMOL/L (135-148)
== END 2016-09-19 19:34 | disposition home or self-care (01) | DRG 166 ==
LOC: ER 16:01 → 6NO 20:42
PROVIDERS: Emergency Medicine; Internal Medicine; Internal Medicine Critical Care Medicine; Student in an Organized Health Care Education/Training Program
PROC: 30233N1 Transfusion of Nonautologous Red Blood Cells into Peripheral Vein, Percutaneous Approach (ICD-10-PCS; 2016-09-07)
PROC: 4B02XTZ Measurement of Cardiac Defibrillator, External Approach (ICD-10-PCS; 2016-09-08)
PROC: 07B74ZX Excision of Thorax Lymphatic, Percutaneous Endoscopic Approach, Diagnostic (ICD-10-PCS; principal; 2016-09-12 09:30)
PROC: 0BB38ZX Excision of Right Main Bronchus, Via Natural or Artificial Opening Endoscopic, Diagnostic (ICD-10-PCS; 2016-09-12 09:30)
PROC: 0B948ZX Drainage of Right Upper Lobe Bronchus, Via Natural or Artificial Opening Endoscopic, Diagnostic (ICD-10-PCS; 2016-09-12 09:30)
PROC: 0B7 Respiratory System, Dilation (ICD-10-PCS; 2016-09-12 09:30)
PROC: 0B5C8ZZ Destruction of Right Upper Lung Lobe, Via Natural or Artificial Opening Endoscopic (ICD-10-PCS; 2016-09-12 09:30)
DX: C34.11 Malignant neoplasm of upper lobe, right bronchus or lung (principal); J18.9 Pneumonia, unspecified organism; I95.89 Other hypotension; I50.42 Chronic combined systolic (congestive) and diastolic (congestive) heart failure; J44.9 Chronic obstructive pulmonary disease, unspecified; I48.91 Unspecified atrial fibrillation; I25.5 Ischemic cardiomyopathy; I25.10 Atherosclerotic heart disease of native coronary artery without angina pectoris; Z79.01 Long term (current) use of anticoagulants; Z86.73 Personal history of transient ischemic attack (TIA), and cerebral infarction without residual deficits; Z95.810 Presence of automatic (implantable) cardiac defibrillator
CPT/HCPCS: 36415; 36600; 70460; 71010; 71020; 71260; 77334; 80048; 80053; 80069; 81001; 82272; 82805; 82962; 83036; 83605; 83735; 83880; 84100; 84145; 84443; 84484; 85025; 85045; 85610; 85730; 86850; 86900; 86901; 86920; 87040; 87086; 87205; 87449; 88112; 88172; 88173; 88305; 88333; 92950; 93005; 93880; 94640; 96374; 97161-GP; 99285; A9270-GY; C1725; C1726; C1876; G0463; G8978-CK-GP; G8979-CH-GP; J0456; J0692; J1170; J1885; J2250; J2370; J2405; J2710; J3010; J3370; P9016; Q9967

== ENCOUNTER 2016-09-20 04:07 | Inpatient (IN) | payer MEDICARE, OTHER ==
--- NOTE | ~2016-09-20 | DS ---
Discharge Summary [facility] [address] [place]. [address] NAME: ELISA GARCIA : 46 STATUS : ADM IN PAT#: [id number] AGE: 66 ADM/REG DATE : 09/20/16 MR#: [id number] REPORT SERV DATE: 10/03/16 DICTATED BY: SHERICE PIERRE II DATE: 10/02/16 REPORT STATUS : Draft TRANSCRIBED BY: MODL DATE: 10/02/16 ADMISSION DATE: 09/20/2016 DISCHARGE DATE: 10/03/2016 DISCHARGE DIAGNOSES: 1. Acute on chronic systolic congestive heart failure with EF 20-25%, status post AICD, currently now well compensated. 2. Postobstructive pneumonia with cultures growing MRSA and Pseudomonas, currently status post day six of vancomycin and Zosyn. 3. Acute on chronic hypoxic respiratory failure. 4. Chronic obstructive pulmonary disease. 5. Paroxysmal atrial fibrillation. 6. Metastatic mgv-oibfe-ymdr lung cancer. Followed by Dr. Miki Das and Dr. Coy. 7. Generalized weakness and debility. 8. History of diabetes mellitus type 2. 9. History of coronary artery disease, status post stent. 10.History of lacunar strokes. 11.History of moderate mitral regurg. CONSULTS: Dr. Squires with Interventional Pulmonary and Dr. Berlin Garcia with Cardiology. PROCEDURES: Bronchoscopy by Dr. Squires with suction of thick secretions and debulking of obstructive tumor. BRIEF HISTORY OF PRESENT ILLNESS: The patient is a 66-year-old female with the above history who presented to [facility] due to worsening shortness of breath and hypoxia. For detailed history and physical examination, please see Dr. Donald Torres's note from 09/20/2016. HOSPITAL COURSE: For details of the patient's hospitalization, please see consult notes by Dr. Garcia, Dr. Squires, and interim summary by Dr. Emmett Graves. I took over the patient's care starting 09/26. At that point in time, the patient was scheduled for a PET scan and her CHF was better compensated. PET scan revealed enlargement of the patient's previously known large right hilar mass extending into the mediastinum to the right upper and middle lobe region and obstructing the right upper lobe bronchus and bronchus intermedius. The bronchial stent at the level of the bronchus intermedius was occluded. There was complete collapse of the right lung, and no residual right lung parenchyma. Dr. Das was concerned that the patient had a rapid progression of her lung cancer and Dr. Squires was consulted for bronch. Bronchoscopy revealed some thick occlusive mucus which was suctioned and then Dr. Squires debulked some of the tumor opening up the bronchus intermedius. The patient's breathing improved postoperatively and she was noted also to have some postobstructive pneumonia and culture subsequently revealed MRSA and Pseudomonas. She has currently received six days of vancomycin Zosyn and should complete her course tomorrow. Given the patient's progression and concern for distance spread as well, Dr. Das did not think the patient would tolerate chemotherapy but recommended palliative radiation and hospice. Currently, the patient has been arranged to go to [facility]; however, Dr. Coy wants to trend, provide a single dose of radiation to the stent area prior to Discharge Summary [address] [address] NAME: ELISA GARCIA RYAN : 46 STATUS : ADM IN [facility]#: [id number] AGE: 66 ADM/REG DATE : 09/20/16 MR#: [id number] REPORT SERV DATE: 10/03/16 DICTATED BY: SHERICE PIERRE II DATE: 10/02/16 REPORT STATUS : Draft TRANSCRIBED BY: PEPE DATE: 10/02/16 discharge. She underwent her CT simulation today and Dr. Coy will consider going ahead with her dose of radiation on Sunday. Otherwise, her atrial fibrillation has been controlled except for occasional episodes of RVR. She has been tolerating her CHF regimen and her creatinine has been stable and she has remained consistently euvolemic. She should be stable for discharge on 10/03. DISCHARGE MEDICATIONS: 1. Aspirin 81 mg p.o. daily. 2. Lipitor 20 mg p.o. at bedtime. 3. Amiodarone 200 mg p.o. b.i.d. 4. Lasix 40 mg p.o. b.i.d. 5. Synthroid 75 mcg p.o. daily. 6. Lopressor 50 mg p.o. b.i.d. 7. Nexium 40 mg p.o. daily. 8. Klor-Con 20 mg p.o. b.i.d. 9. Ramipril 2.5 mg p.o. daily. 10.Incruse Ellipta one puff daily. 11.Coumadin 2.5 mg p.o. q.1800. 12.Midodrine 5 mg p.o. t.i.d. 13.Symbicort two puffs inhaled b.i.d. p.r.n. 14.Robitussin 10 mL p.o. b.i.d. p.r.n. congestion. 15.Albuterol neb q.8 hours. 16.DuoNeb at bedtime. 17.DuoNeb q.4 hours p.r.n. 18.Tylenol 500 mg p.o. daily p.r.n. DISCHARGE INSTRUCTIONS: The patient will be discharged to [facility] under hospice tomorrow. EMA/PEPE Sherice Pierre II, MD / [id number] CC: MD Major Jenkins M.D.
--- NOTE | ~2016-09-20 | IDS ---
Interim Discharge Summary [facility] [address] [place]. [address] NAME: ELISA GARCIA : 46 STATUS : ADM IN PAT#: [id number] AGE: 66 ADM/REG DATE : 09/20/16 MR#: [id number] REPORT SERV DATE: 09/26/16 DICTATED BY: HARIKA GRAVES DATE: 09/25/16 REPORT STATUS : Draft TRANSCRIBED BY: MODL DATE: 09/25/16 ADMISSION DATE: 09/20/2016 DISCHARGE DATE: Interim summary covers up to date 09/25/2016. CHIEF COMPLAINT ON ADMISSION: Went home after hospitalization, felt short of breath and weak. CURRENT HOSPITAL DIAGNOSES: 1. Acute systolic heart failure with ejection fraction of 20% to 25%. 2. 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 3. History of chronic obstructive pulmonary disease. 4. Paroxysmal atrial fibrillation. 5. Weakness and debility. HISTORY OF PRESENT ILLNESS: Please see full H and P by Dr. Donald Torres for details regarding initial presentation. HOSPITAL COURSE: 1. Acute systolic heart failure. The patient has been diuresed to euvolemia. Continue Lasix. Monitor closely for any evidence of volume overload. 2. Paroxysmal atrial fibrillation. The patient has had intermittent AFib with starting of diltiazem dose in the spontaneous conversion. Cardiology has seen and started on Tikosyn. Appreciate their assistance. 3. Right upper lobe squamous cell lung carcinoma status post obstruction with stenting. Continue Mucomyst nebulizer treatments. The patient will get a PET scan tomorrow per Dr. Das so she can continue to proceed with her treatment course and get radiation treatments while at rehab. No plans for chemo until discharge from rehab. 4. Debility and weakness. The patient will be planning to go to rehab at discharge this time. Last time, she insisted on going home, was there less than 12 hours and then came back to the hospital. DISPOSITION: Anticipate discharge to SNF in two to three days. DNK/PEPE Harika Graves MD / [id number] CC: Harika Graves MD Interim Discharge Summary [id number] [place]. [address] NAME: ELISA GARCIA : 46 STATUS : ADM IN PAT#: [id number] AGE: 66 ADM/REG DATE : 09/20/16 MR#: [id number] REPORT SERV DATE: 09/26/16 DICTATED BY: HARIKA GRAVES DATE: 09/25/16 REPORT STATUS : Draft TRANSCRIBED BY: MODL DATE: 09/25/16 Major Ramirez M.D.
--- NOTE | ~2016-09-20 | DS ---
Discharge Summary [address] [facility] [place]. [address] NAME: ELISA GARCIA : 46 STATUS : DIS IN PAT#: [id number] AGE: 66 ADM/REG DATE : 09/20/16 MR#: [id number] REPORT SERV DATE: 10/10/16 DICTATED BY: HARIKA GRAVES DATE: 10/09/16 REPORT STATUS : Draft TRANSCRIBED BY: MODL DATE: 10/09/16 ADMISSION DATE: 09/20/2016 DISCHARGE DATE: 10/09/2016 CHIEF COMPLAINT ON ADMISSION: Shortness of breath, hypoxia. DISCHARGE DIAGNOSES: 1. Acute systolic heart failure exacerbation. 2. Chronic obstructive pulmonary disease. 3. Metastatic lung cancer, recent diagnosis. 4. Hypoxia. 5. Postobstructive pneumonia, status post antibiotics. 6. Debility. 7. Paroxysmal atrial fibrillation. HOSPITAL COURSE: Please see interim summary dictated by on 09/25/2016, and then discharge summary dictated by Dr. Hinton on 10/03/2016. 1. Acute systolic heart failure with ejection fraction of 20% to 25%, status post AICD. The patient was admitted and diuresed and currently she is euvolemic. She will be discharged with compensated heart failure at this time. She does not tolerate TOMAS inhibitor due to hypotension. 2. Postobstructive pneumonia with cultures that grew MRSA and Pseudomonas. She is status post a full course of vancomycin and Zosyn. 3. Acute on chronic hypoxic respiratory failure. Currently, she is doing well and is stable on 3 L. 4. COPD. The patient currently has no evidence of acute exacerbation. 5. Paroxysmal atrial fibrillation. The patient was seen by Cardiology. She should be continued on her amiodarone and Coumadin. 6. Metastatic non-small cell lung cancer. The patient is not a candidate for chemo at this time. She is status post radiation with Dr. Coy at this point. She will be discharged to rehab, and then likely transitioned to hospice pending improvement if her functional status does improve to the point where she is a candidate for chemo. Dr. Miki Das will see her as an outpatient. 7. Type 2 diabetes. See discharge medication list for details. 8. Coronary artery disease, status post stenting in the past. The patient to continue on aspirin and statin. 9. History of lacunar stroke. 10.History of moderate mitral regurgitation, follow. 11.Generalized weakness and debility. The patient is being discharged to SNF. DISCHARGE MEDICATIONS: Aspirin 81 mg; amiodarone 200 mg p.o. b.i.d.; Dulcolax p.r.n.; Lasix 40 mg p.o. b.i.d.; Synthroid 75 mcg daily; Incruse Ellipta 1 puff in the morning; potassium chloride 20 mEq p.o. b.i.d.; Nexium 40 mg daily; metoprolol 50 mg p.o. b.i.d. with hold parameters; midodrine 5 mg t.i.d.; Coumadin 5 mg every day except Sunday and , take 3 mg; Symbicort; Mucomyst nebs every 8 hours; Robitussin p.r.n.; Tylenol p.r.n.; albuterol every eight hours; Tessalon Perles p.r.n.; docusate 100 b.i.d.; Valium 10 mg p.r.n.; Discharge Summary [address] [address] NAME: ELISA GARCIA : 46 STATUS : DIS IN PAT#: [id number] AGE: 66 ADM/REG DATE : 09/20/16 MR#: [id number] REPORT SERV DATE: 10/10/16 DICTATED BY: HARIKA GRAVES DATE: 10/09/16 REPORT STATUS : Draft TRANSCRIBED BY: MODL DATE: 10/09/16 hydrocodone 10/325 p.r.n.; milk of magnesia p.r.n.; Zofran p.r.n.; DuoNeb at bedtime and then p.r.n.; Crestor 10 mg at bedtime. Time spent on this discharge is greater than 30 minutes. ALEJANDROK/PEPE Harika Graves MD / [id number]
--- NOTE | ~2016-09-20 | CN ---
Consultation Report [facility] [address] [place]. [address] NAME: ELISA GARCIA : 48 STATUS : ADM IN PAT#: [id number] AGE: 66 ADM/REG DATE : 09/20/16 MR#: [id number] REPORT SERV DATE: 09/25/16 DICTATED BY: BERLIN DOE DATE: 09/25/16 REPORT STATUS : Draft TRANSCRIBED BY: MODL DATE: 09/25/16 CONSULTATION DATE OF CONSULTATION: 09/25/2016 REASON FOR CONSULTATION: Atrial fibrillation. PRIMARY RN PALLIATIVE: Yang Leo M.D. HISTORY OF PRESENT ILLNESS: Ms. Garcia is a pleasant 66-year-old female with a history of coronary artery disease, status post OLIVIER to the LAD (2011), severe ischemic cardiomyopathy (LVEF=20% to 25%), paroxysmal atrial fibrillation on Coumadin, status post dual chamber ICD ([employer]), and newly diagnosed lung cancer awaiting treatment, who was admitted after recent discharge from [facility] for persistent dyspnea. Over the past several days, she has been treated for mild volume overload as well as COPD, with interval improvement in her symptoms of dyspnea. She states that she had recently been discharged in approximately six hours later and ended up coming back to the hospital given significant shortness of breath. It did not come on acutely, but rather progressed gradually and had started prior to discharge. While here, she has diuresed a modest amount with some interval improvement in her symptoms. She otherwise has no complaints. She denies having any chest pains, pressures, palpitations, dizziness, or loss of consciousness. She was recently diagnosed with squamous cell carcinoma of the lung, for which she is awaiting a PET scan. She otherwise has been having paroxysms of atrial fibrillation with rapid ventricular rate. She was on a Cardizem drip during her stay here; however, this was titrated off a few days ago and her beta-lidia was up titrated. These changes resulted in fairly good control of her atrial fibrillation and with predominantly sinus rhythm. However, she continues to have paroxysms of atrial fibrillation with RVR, prompting consultation again (after consulting us last week, and the patient was not seen for unclear reasons). PAST MEDICAL HISTORY: As above. ALLERGIES: MORPHINE AND ASPIRIN. SOCIAL HISTORY: The patient lives at home alone and functions independently under normal circumstances. She denies drinking alcohol or doing drugs. She was an active smoker up until her diagnosis of lung cancer just recently. REVIEW OF SYSTEMS: As above, all other systems otherwise negative. HOME MEDICATIONS: 1. Tylenol. 2. Mucomyst. 3. DuoNeb. Consultation Report [place] [address] [place]. [address] NAME: ELISA GARCIA : 48 STATUS : ADM IN PAT#: [id number] AGE: 66 ADM/REG DATE : 09/20/16 MR#: [id number] REPORT SERV DATE: 09/25/16 DICTATED BY: BERLIN DOE DATE: 09/25/16 REPORT STATUS : Draft TRANSCRIBED BY: PEPE DATE: 09/25/16 4. Tessalon Perles. 5. Symbicort. 6. Valium. 7. Nexium. 8. Lasix 40 mg p.o. b.i.d. p.r.n. 9. Mucinex. 10.[place]. 11.Synthroid. 12.Lopressor 25 mg p.o. b.i.d. 13.Midodrine. 14.Klor-Con. 15.Altace 2.5 mg p.o. b.i.d. 16.Crestor 10 mg p.o. q.h.s. 17.Coumadin. PHYSICAL EXAMINATION: VITAL SIGNS: Blood pressure 130/67, pulse 70 intermittently A-paced, [place] sinus rhythm, atrial fibrillation with RVR. GENERAL: Well developed, well nourished, no acute distress. NEURO: Awake, alert and oriented x3; no focal deficits, appropriate mood. HEENT: Moist mucous membranes, anicteric sclerae, no nasal discharge. NECK: No JVD, no carotid bruit. RESPIRATORY: Mild resting dyspnea, diminished breath sounds throughout the right lung field. CV: Regular rhythm, normal S1/S2, no murmurs, rubs or gallops. ABD: Soft, non-tender, non-distended, no rebound or guarding. EXT: No pitting edema, normal distal pulses. SKIN: Warm, dry and intact; no rash. PERTINENT TEST FINDINGS: Potassium 3.6, creatinine 0.76. White blood cell count 8.2, hemoglobin 12.7. Troponin 0.26, 0.25, and 0.19. Today, BNP 402, originally 1200. TSH 1.9. EKG and telemetry demonstrate intermittent atrial fibrillation with RVR with sinus rhythm at times with A-pacing at times. There are no ischemic changes on her EKG. IMPRESSION AND PLAN: Ms. Garcia is a 66-year-old female with a history of newly diagnosed lung cancer; paroxysmal atrial fibrillation; coronary artery disease, status post PCI, resolved; complete heart block and chronic severe ischemic cardiomyopathy (EF 20-25%), who was admitted with mild volume overload as well as atrial fibrillation with rapid ventricular response. She has made good progress from a volume standpoint and now feels considerably better from a respiratory perspective. However, she continues to have paroxysms of atrial fibrillation with rapid ventricular rate. In light of her significant cardiovascular history, in particular, structural heart disease with depressed EF (20% to 25%), and significant coronary artery disease, as well as most recently significant lung disease with Consultation Report [address] [address] NAME: ELISA GARCIA RYAN : 48 STATUS : ADM IN PAT#: [id number] AGE: 66 ADM/REG DATE : 09/20/16 MR#: [id number] REPORT SERV DATE: 09/25/16 DICTATED BY: BERLIN DOE DATE: 09/25/16 REPORT STATUS : Draft TRANSCRIBED BY: PEPE DATE: 09/25/16 resting dyspnea I believe that she would be a good candidate for Tikosyn. Alternatively, low-dose amiodarone may be considered, however, given her lungs process/cancer I am reluctant to start her on this drugs over Tikosyn. We will initiate Tikosyn at this time and monitor QTc intervals for lengthening. In addition, I recommend continuation of the beta lidia as written. Serial EKGs will be done for QTc monitoring. Echocardiographic findings from echocardiogram this admission has been noted and did not show any new changes when compared to previous echo. Otherwise, I will discuss her case with her primary mounted police officer, Dr. Leo, to ensure that she is followed during her stay here. NEGRA/PEPE Berlin Doe MD / [id number] CC: MD Major Jenkins M.D.
--- NOTE | ~2016-09-20 | CN ---
Consultation Report [address] [place]. [address] NAME: ELISA GARCIA : 48 STATUS : ADM IN PAT#: [id number] AGE: 66 ADM/REG DATE : 09/20/16 MR#: [id number] REPORT SERV DATE: 09/27/16 DICTATED BY: FADIA GONZALEZ DATE: 09/27/16 REPORT STATUS : Draft TRANSCRIBED BY: MODAlfredo DATE: 09/27/16 CONSULTATION DATE OF CONSULTATION: Dr. Graves. Thank you for requesting my opinion regarding evaluation and management of Ms Elisa Garcia's occluded right mainstem stent and right hemithorax opacification noted on PET-CT scan. Ms. Garcia is an unfortunate 66-year-old female with a significant past medical history of coronary artery disease, status post OLIVIER to the LAD in 2011, severe ischemic cardiomyopathy with an EF of 20% to 25%. Paroxysmal atrial fibrillation, off Coumadin for the procedure, status post dual-chamber ICD placement, and recently diagnosed advanced stage lung cancer. She presents after recent discharge with worsening shortness of breath, dyspnea on exertion that was gradual in nature well localized to the chest. She complains that her symptoms are moderate in nature, nonradiating with no significant alleviating or exacerbating factors. She denies any chest pain, palpitations, nausea, vomiting, diarrhea, or constipation. She states that she has been compliant with her use on bronchodilator nebulization therapy for her stent. REVIEW OF SYSTEMS: A detailed 14-point review of systems was completed. Pertinent positives and negatives are listed above. PAST MEDICAL HISTORY: 1. T3, N2 lung cancer under the care of Dr. Miki Das and Dr. Coy. 2. Congestive heart failure with an EF of approximately 20% to 25%. 3. Pacer, AICD device. 4. Diabetes. 5. Coronary artery disease, status post stent. 6. Atrial fibrillation. 7. COPD. 8. Hypothyroidism. 9. Lacunar strokes. 10.Hyperlipidemia. 11.Chronic back pain. 12.Moderate mitral regurg. 13.Pericardial effusion. 14.Urinary tract infection. 15.KALIN, but not on CPAP. 16.E coli bacteremia in May 2015. PAST SURGICAL HISTORY: 1. Pacer/AICD. 2. Cholecystectomy. Consultation Report [address] [place]. [address] NAME: ELISA GARCIA : 48 STATUS : ADM IN PAT#: [id number] AGE: 66 ADM/REG DATE : 09/20/16 MR#: [id number] REPORT SERV DATE: 09/27/16 DICTATED BY: FADIA GONZALEZ DATE: 09/27/16 REPORT STATUS : Draft TRANSCRIBED BY: MODL DATE: 09/27/16 3. Appendectomy. 4. Tubal ligation. 5. Knee surgery. ALLERGIES: MORPHINE AND ASPIRIN. HOME MEDICATIONS: Inpatient medication are reviewed and located in the paper chart. The patient's Coumadin has been reversed. SOCIAL HISTORY: The patient quit smoking. She has a history of heavy tobacco abuse. She denies any significant current alcohol or illicit drug abuse. FAMILY HISTORY: Coronary disease and diabetes. PHYSICAL EXAMINATION: VITAL SIGNS: Afebrile, T current 97, pulse is 70, respiratory rate of 16, 5 L 97%, blood pressure 112/58, currently on 3 L. 5 feet, 479 pounds. BMI of 30. GENERAL: Morbidly obese, white female, chronically ill appearing. HEENT: Normocephalic and atraumatic. Pupils are equal, round, and reactive to light and accommodation. Posterior oropharynx is clear. NECK: No JVD. No LAD. Trachea midline. CARDIOVASCULAR: Irregular rate and rhythm. S1 and S2 present. LUNGS: Diminished breath sounds and dull to percussion throughout the right hemithorax, slightly labored breathing especially with extended conversations. ABDOMEN: Nontender, nondistended, and soft. Positive bowel sounds. EXTREMITIES: No clubbing, cyanosis, or edema. SKIN: No new rashes, lesions, or ulcers. PSYCHIATRIC: Alert and oriented x3. Appropriate mood and affect. Appropriate insight and judgment. NEUROLOGIC: 5/5 strength in upper and lower extremities. Cranial nerves 2 through 12 intact. Gait not tested. DTRs not performed. LABORATORY DATA: White count 1.4. Potassium 2.9. Chemistries demonstrate a potassium 0.76. IMAGIN. PET-CT on 09/26/2016, demonstrated a large right hilar FDG avid, mediastinal extending to the level of 4R in the mediastinum, right upper lobe, right middle lobe, obstructing right upper lobe, and at the level of the bronchus intermedius is occluded, there is complete collapse of the right lung, residual right lung parenchyma, small right-sided pleural effusion. 2. FDG avid right paratracheal prevascular 3A subcarinal and mediastinal lymphadenopathy. 3. FDG avid intercostal nodule between the anterior 6th and 7th ribs concerning for more spread of distant disease. 4. FDG avid subcutaneous central wall soft tissue nodules along the subcutaneous aspect of the left abdominal pelvic wall pannus. Consultation Report [address] [address] NAME: ELISA GARCIA : 48 STATUS : ADM IN PAT#: [id number] AGE: 66 ADM/REG DATE : 09/20/16 MR#: [id number] REPORT SERV DATE: 09/27/16 DICTATED BY: FADIA GONZALEZ DATE: 09/27/16 REPORT STATUS : Draft TRANSCRIBED BY: PEPE DATE: 09/27/16 5. FDG avid distant metastases. 6. Complete opacification of the left maxillary sinus, aortoiliac atherosclerosis, grade 2 spondylolisthesis in the lumbosacral region. 7. This PET-CT scan has been personally reviewed by me and I agree with the above interpretation. ASSESSMENT AND PLAN: Ms. Elisa Garcia is an unfortunate 66-year-old female, with a significant past medical history of advanced stage lung cancer, who presents with chronic progressive worsening shortness of breath and dyspnea on exertion. PET-CT scan performed on 09/26/2016, confirmed a near complete occlusion of the stent, with noted residual aerated right lung. The possibility of soft tissue or tumor plug versus mucus plug is unclear. There is a possibility of tumor plug versus mucus plug. At this point, the patient may benefit from a flexible rigid bronchoscopy to better delineate the underlying cause of the right hemithorax opacification. If the patient's stent is completely occluded by tumor, we may or may not consider removal or extraction of the stent based on logistically how difficult it may be. If the patient has a mucus plug, therapeutic aspiration of secretions may be extremely beneficial. The patient is aware that the procedure is associated with potential life-threatening risks, including lung collapse, respiratory failure, injury to the mouth, lips, teeth, posterior gums, C-spine fracture, stent migration, fracture, and cardiopulmonary arrest. RECOMMENDATIONS: A summary of my recommendations are as follows: 1. Proceed with flexible rigid bronchoscopy with possible stent extraction, therapeutic aspiration of secretions. 2. Findings on the PET-CT scan are extremely worrisome for progressive disease in a short interval of time. Thank you for allowing me to participate in Ms. Garcia's care. KB/MODL Fadia Gonzalez M.D. / [id number] CC: Jose Hinton II, MD
--- NOTE | ~2016-09-20 | HP ---
History And Physical [place] [id number] [facility]. [address] NAME: ELISA GARCIA : 48 STATUS : ADM IN LOCATED WITHIN [facility]#: [id number] AGE: 65 ADM/REG DATE : 09/20/16 MR#: [id number] REPORT SERV DATE: 09/20/16 DICTATED BY: LYNDSAY SCHULTZ DATE: 09/20/16 REPORT STATUS : Draft TRANSCRIBED BY: MODL DATE: 09/20/16 DATE OF ADMISSION: 09/20/2016 CHIEF COMPLAINT: A 65-year-old female recently hospitalized for new diagnosis of lung cancer, now presenting with a smothering orthopnea and shortness of breath, hypoxia. HISTORY OF PRESENTING ILLNESS: The patient's history was obtained through careful interview with the patient and daughter, coupled with review of [facility] medical records. The patient was hospitalized between 09/07/2016 and 09/19/2016 with new diagnosis, right lung squamous cell carcinoma of the lung. She has been evaluated under the care of Dr. Miki Das, oncologist and Dr. Coy, radiation oncologist. She has been stabilizing and preparing for discharge. She unfortunately over the last few days has had increasing shortness of breath. But, when she was discharged home on the day prior to admission, she began to have severe dyspnea on exertion. When she tried to lay down tonight to sleep, she felt as if she was smothering and could not get enough air. She describes orthopnea, paroxysmal nocturnal dyspnea. She feels as if she has had slight swelling in her lower extremities and abdomen. No abdominal pain. No chest pain. She does have chronic back pain, constant aching quality, 8/10 severity. She describes lightheadedness, dizziness, no confusion. REVIEW OF SYSTEMS: Otherwise, a 14-point review of systems was obtained and was negative. PAST MEDICAL HISTORY: 1. Lung cancer, T3 N2, just diagnosed in 2017, under the care of Dr. Miki Das and Dr. Coy. 2. Congestive heart failure. Ejection fraction 25%. 3. Pacer/AICD placement. 4. Diabetes. Hemoglobin A1c of 6.3. 5. Coronary artery disease status post stent placement. 6. Atrial fibrillation. 7. COPD. Seen by Dr. Talley. 8. Hypothyroidism. 9. Lacunar strokes. 10.Elevated cholesterol. 11.Chronic back pain. 12.Moderate mitral regurgitation. 13.Pericardial effusion. History And Physical [address] [address] NAME: ELISA GARCIA : 48 STATUS : ADM IN PAT#: [id number] AGE: 65 ADM/REG DATE : 09/20/16 MR#: [id number] REPORT SERV DATE: 09/20/16 DICTATED BY: LYNDSAY SCHULTZ DATE: 09/20/16 REPORT STATUS : Draft TRANSCRIBED BY: PEPE DATE: 09/20/16 14.Urinary tract infection. 15.Obstructive sleep apnea, but not on CPAP. 16.E coli bacteremia in May 2015. PAST SURGICAL HISTORY: 1. Pacer/AICD placement. 2. Cholecystectomy. 3. Appendectomy. 4. Tubal ligation. 5. Knee surgery. ALLERGIES: MORPHINE AND ASPIRIN. SOCIAL HISTORY: Quit smoking. No alcohol abuse. Lives with daughter. Has a total of two daughters. Has been a for 24 years. Has nine grandchildren and one great granddaughter. Retired from [employer]. FAMILY HISTORY: Father at 62 years of age of a heart attack. A strong family history of diabetes. CURRENT MEDICATIONS: From the chart suggests that the patient is on metoprolol 25 mg p.o. b.i.d., levothyroxine 75 mcg p.o. daily, Altace 2.5 mg p.o. b.i.d., Nexium 40 mg p.o. daily, Ellipta inhaler, Coumadin unknown dose, midodrine 5 mg p.o. b.i.d., Symbicort two puffs inhaled twice a day, guaifenesin, dual nebulizers, Tylenol, milk of magnesia, Valium p.r.n., hydrocodone p.r.n., potassium 10 mEq p.o. daily if she takes Lasix?, Crestor 20 mg p.o. daily, Tessalon Perles. PHYSICAL EXAMINATION: VITAL SIGNS: Temperature 97.8, pulse 71, blood pressure 131/66, respiratory rate 26, O2 saturation 93% on 4 L nasal cannula. GENERAL: A pleasant, cooperative female, but in evidence of quite a bit of distress secondary to shortness of breath. HEENT: Pupils equal, round, and reactive to light. No conjunctival pallor. No scleral icterus. Nares are patent. Oropharynx is clear of obstruction. Moist mucous membranes. NECK: Trachea midline. No thyromegaly. LYMPH: No cervical lymphadenopathy. No supraclavicular lymphadenopathy. RESPIRATORY: The patient has wet rales at the base of lungs. No wheezes currently. Very labored respiratory effort. Heaving with her abdomen to help breathe. CARDIOVASCULAR: Regular rate and rhythm. No murmurs, rubs, gallops are appreciated. I do not appreciate any lower extremity edema at this time. ABDOMEN: Soft, nontender. Does not seem distended by exam. No hepatosplenomegaly. DERMATOLOGICAL: Warm and dry extremities. No pallor. No cyanosis. PSYCHIATRIC: Normal affect. Good mood. Alert and oriented x3. LABORATORY DATA: White blood cell count 6.3, hemoglobin 13, hematocrit 41, platelets 164. Sodium 138, potassium 5.3, chloride 99, bicarb 30, BUN 12, creatinine 2.6, glucose 97. Brain natriuretic peptide 944. Troponin negative. INR 1.8. Liver enzymes within normal History And Physical [address] [address] NAME: ELISA GARCIA : 48 STATUS : ADM IN LOCATED [facility]IN [facility]#: [id number] AGE: 65 ADM/REG DATE : 09/20/16 MR#: [id number] REPORT SERV DATE: 09/20/16 DICTATED BY: LYNDSAY SCHULTZ DATE: 09/20/16 REPORT STATUS : Draft TRANSCRIBED BY: MODL DATE: 09/20/16 limits. ABG demonstrates pH 7.38, PaCO2 of 45, PaO2 of 60, and bicarb of 26 on 4 L nasal cannula. STUDIES: 1. Chest x-ray by my own evaluation shows small bilateral pleural effusions, maybe some slight pulmonary edema, but not overt. Right upper lung mass is persistent. 2. EKG by my own evaluation shows sinus rhythm with left bundle branch block. ASSESSMENT AND PLAN: 1. Systolic congestive heart failure exacerbation. History of ejection fraction of 25%. Recheck an echocardiogram. Place on IV diuretic. Continue beta-lidia and TOMAS inhibitor. Noted the patient has hypoxic respiratory failure. 2. Right lung cancer with squamous cell carcinoma, seen by Dr. Hogue. 3. Chronic obstructive pulmonary disease. Placed on dual nebulizers. Seen outpatient by Dr. Talley. 4. Paroxysmal atrial fibrillation. Check telemetry. Continue Coumadin. 5. History of mitral regurgitation and pericardial effusion. To recheck an echocardiogram. 6. Pacer/AICD. We will interrogate. KPL/MODL Lyndsay Schultz M.D. / [id number] CC: Alla Rizo M.D. Nathan Mull IV, M.D. Jonathan T Whaley, MD Davey B. Daniel, M.D.
[~2016-09-20 04:07] MED LIST changes: +ALBUTEROL0.083 % INH; +MUCO10%10 INH
[2016-09-20 04:14] LABS: ALLENS TEST Pos; BE (BASE EXCESS) 0.3 MEQ/L (0 +/- 2.5); CARBOXYHEMOGLOBIN 1.4 % (0-3); DEVICE NC; HCO3 (ACTUAL BICARBONATE) 25.8 MEQ/L (23-27); HEMOBLOGIN CONTENT 13.3 G/DL (12-16); INSTRUMENT SERIAL # 8087; METHEMOGLOBIN 0.2 % (0-3); O2 CONTENT 17.1 VOL% (18-24); PCO2 (CO2 TENSION) 45 MMHG (35-45); PO2 (O2 TENSION) 68 MMHG (79-93); SAMPLE Arterial; pH 7.38 (7.37-7.43)
[2016-09-20 04:30] LABS: BASOPHILS 0.2 %; BASOPHILS ABSOLUTE 0.01 10/3/uL (0.0-0.16); EOSINOPHILS 0.3 %; EOSINOPHILS ABSOLUTE 0.02 10/3/uL (0.0-0.53); ER CBC TAT 0 Hrs 09 Mins; HEMATOCRIT 41.1 % (36.0-48.0); IMMATURE GRANULOCYTES 0.6 %; IMMATURE GRANULOCYTES ABSOLUTE 0.04 10/3/uL (0.0-0.11); LYMPHOCYTES 12.5 %; LYMPHOCYTES ABSOLUTE 0.78 10/3/uL (0.67-4.30); MANUAL DIFF NO %; MEAN CORPUS HGB CONC 31.6 g/dL (32.0-36.0); MEAN CORPUSCULAR HEMOGLOB 28.1 pg (26.0-34.0); MEAN CORPUSCULAR VOLUME 88.8 fL (80-100); MEAN PLATELET VOLUME 9.7 fL (9.2-13.0); MONOCYTES 6.2 %; MONOCYTES ABSOLUTE 0.39 10/3/uL (0.21-1.20); NEUTROPHILS 80.2 %; NEUTROPHILS ABSOLUTE 5.01 10/3/uL (2.02-8.40); PLATELET COUNT 164 10/3/uL (150-400); RBC DISTRIBUTION WIDTH 15.5 % (12.0-16.0); RED CELL COUNT 4.63 10/6/uL (4.0-5.6); WHITE BLOOD CELLS 6.3 10/3/uL (4.5-10.5)
[2016-09-20 04:41] LABS: INTERNATIONAL NORMAL RATI 1.8 UNITS (-); PROTIME (NOT ORD) 21.1 SEC (12.0-14.5)
[2016-09-20 04:42] LABS: PARTIAL THROMBO TIME 50.3 SEC (22.5-37.2)
[2016-09-20 04:47] LABS: ALBUMIN 2.5 G/DL (3.5-5.0); ALKALINE PHOSPHATASE 80 U/L (45-117); BUN (BLOOD UREA NITROGEN) 12 MG/DL (6-23); CALCIUM, SERUM 9.4 MG/DL (8.5-10.4); CHLORIDE, SERUM 99 MMOL/L (96-112); CO2 (CARBON DIOXIDE) 30 MMOL/L (24-34); CREATININE 0.56 MG/DL (0.55-1.02); DIRECT BILIRUBIN 0.1 MG/DL (0.0-0.4); GFR AFRICAN AMERICAN 112 ML/MIN (>=60); GFR NON AFRICAN AMERICAN 96 ML/MIN (>=60); GLUCOSE, SERUM 97 MG/DL (60-99); INDIRECT BILIRUBIN(NOT ORDER) 0.8 MG/DL (0.1-0.9); POTASSIUM, SERUM 5.3 MMOL/L (3.5-5.3); SGOT(AST) 20 U/L (5-40); SGPT(ALT) 17 U/L (5-65); SODIUM, SERUM 138 MMOL/L (135-148); TOTAL BILIRUBIN 0.9 MG/DL (0-1.2); TOTAL PROTEIN 6.8 G/DL (6.0-8.5)
[2016-09-20 04:49] LABS: CHEST PAIN PROFILE TAT 0 Hrs 28 Mins; TROPONIN I 0.04 NG/ML (<0.05)
[2016-09-20 09:17] LABS: BASOPHILS 0 %; EOSINOPHILS 0 %; HEMATOCRIT 40.9 % (36.0-48.0); IMMATURE GRANULOCYTES 0.5 %; IMMATURE GRANULOCYTES ABSOLUTE 0.03 10/3/uL (0.0-0.11); LYMPHOCYTES 5.2 %; MEAN CORPUS HGB CONC 31.8 g/dL (32.0-36.0); MEAN CORPUSCULAR HEMOGLOB 27.6 pg (26.0-34.0); MEAN CORPUSCULAR VOLUME 86.8 fL (80-100); MEAN PLATELET VOLUME 9.4 fL (9.2-13.0); MONOCYTES 0.7 %; MONOCYTES ABSOLUTE 0.04 10/3/uL (0.21-1.20); NEUTROPHILS 93.6 %; PLATELET COUNT 170 10/3/uL (150-400); RBC DISTRIBUTION WIDTH 15.5 % (12.0-16.0); RED CELL COUNT 4.71 10/6/uL (4.0-5.6); WHITE BLOOD CELLS 5.8 10/3/uL (4.5-10.5)
[2016-09-20 09:18] LABS: MANUAL DIFF NO %
[2016-09-20 09:26] LABS: INTERNATIONAL NORMAL RATI 1.9 UNITS (-); PARTIAL THROMBO TIME 42.8 SEC (22.5-37.2)
[2016-09-20 09:41] LABS: A/G RATIO 0.5 (0.7-1.9); ALBUMIN 2.4 G/DL (3.5-5.0); ALKALINE PHOSPHATASE 78 U/L (45-117); BUN (BLOOD UREA NITROGEN) 12 MG/DL (6-23); CALCIUM, SERUM 9.7 MG/DL (8.5-10.4); CHLORIDE, SERUM 100 MMOL/L (96-112); CO2 (CARBON DIOXIDE) 26 MMOL/L (24-34); CREATININE 0.52 MG/DL (0.55-1.02); GFR AFRICAN AMERICAN 115 ML/MIN (>=60); GFR NON AFRICAN AMERICAN 99 ML/MIN (>=60); GLOBULIN 4.5 G/DL (2.5-4.1); SGOT(AST) 18 U/L (5-40); SGPT(ALT) 16 U/L (5-65); SODIUM, SERUM 135 MMOL/L (135-148); TOTAL PROTEIN 6.9 G/DL (6.0-8.5); TROPONIN I 0.03 NG/ML (<0.05)
[2016-09-20 09:43] LABS: CK-MB 1.9 NG/ML; CPK 29 U/L (0-200); GLUCOSE, SERUM 118 MG/DL (60-99); TOTAL BILIRUBIN 0.3 MG/DL (0-1.2)
[2016-09-21 05:52] LABS: INTERNATIONAL NORMAL RATI 3.1 UNITS (-)
[2016-09-21 05:54] LABS: PROTIME (NOT ORD) 31.8 SEC (12.0-14.5)
[2016-09-21 05:59] LABS: CALCIUM, SERUM 9.5 MG/DL (8.5-10.4); CHLORIDE, SERUM 96 MMOL/L (96-112); CREATININE 0.86 MG/DL (0.55-1.02); GFR AFRICAN AMERICAN 81 ML/MIN (>=60); GFR NON AFRICAN AMERICAN 70 ML/MIN (>=60); GLUCOSE, SERUM 112 MG/DL (60-99); POTASSIUM, SERUM 4.7 MMOL/L (3.5-5.3); SODIUM, SERUM 139 MMOL/L (135-148)
[2016-09-21 06:05] LABS: BUN (BLOOD UREA NITROGEN) 23 MG/DL (6-23); CO2 (CARBON DIOXIDE) 31 MMOL/L (24-34)
[2016-09-22 06:36] LABS: INTERNATIONAL NORMAL RATI 3.2 UNITS (-); PROTIME (NOT ORD) 32.2 SEC (12.0-14.5)
[2016-09-22 06:46] LABS: CHLORIDE, SERUM 96 MMOL/L (96-112); CREATININE 1.22 MG/DL (0.55-1.02); GFR AFRICAN AMERICAN 53 ML/MIN (>=60); GFR NON AFRICAN AMERICAN 46 ML/MIN (>=60); GLUCOSE, SERUM 91 MG/DL (60-99); POTASSIUM, SERUM 4.1 MMOL/L (3.5-5.3); SODIUM, SERUM 137 MMOL/L (135-148)
[2016-09-22 06:48] LABS: CO2 (CARBON DIOXIDE) 36 MMOL/L (24-34)
[2016-09-22 06:49] LABS: BUN (BLOOD UREA NITROGEN) 32 MG/DL (6-23); TROPONIN I 0.26 NG/ML (<0.05)
[2016-09-23 04:54] LABS: BASOPHILS 0.1 %; BASOPHILS ABSOLUTE 0.01 10/3/uL (0.0-0.16); EOSINOPHILS 0.5 %; EOSINOPHILS ABSOLUTE 0.04 10/3/uL (0.0-0.53); HEMATOCRIT 41.2 % (36.0-48.0); HEMOGLOBIN 12.7 g/dL (12.0-16.0); IMMATURE GRANULOCYTES 0.5 %; IMMATURE GRANULOCYTES ABSOLUTE 0.04 10/3/uL (0.0-0.11); LYMPHOCYTES 10.6 %; LYMPHOCYTES ABSOLUTE 0.87 10/3/uL (0.67-4.30); MEAN CORPUS HGB CONC 30.8 g/dL (32.0-36.0); MEAN CORPUSCULAR HEMOGLOB 27.8 pg (26.0-34.0); MEAN PLATELET VOLUME 9.8 fL (9.2-13.0); MONOCYTES 12.2 %; NEUTROPHILS 76.1 %; NEUTROPHILS ABSOLUTE 6.21 10/3/uL (2.02-8.40); PLATELET COUNT 177 10/3/uL (150-400); RBC DISTRIBUTION WIDTH 15.8 % (12.0-16.0); RED CELL COUNT 4.57 10/6/uL (4.0-5.6)
[2016-09-23 04:55] LABS: MANUAL DIFF NO %; MEAN CORPUSCULAR VOLUME 90.2 fL (80-100); WHITE BLOOD CELLS 8.2 10/3/uL (4.5-10.5)
[2016-09-23 05:28] LABS: BUN (BLOOD UREA NITROGEN) 31 MG/DL (6-23); CALCIUM, SERUM 9.1 MG/DL (8.5-10.4); CHLORIDE, SERUM 98 MMOL/L (96-112); CO2 (CARBON DIOXIDE) 36 MMOL/L (24-34); CREATININE 0.99 MG/DL (0.55-1.02); GFR AFRICAN AMERICAN 68 ML/MIN (>=60); GFR NON AFRICAN AMERICAN 59 ML/MIN (>=60); GLUCOSE, SERUM 80 MG/DL (60-99); POTASSIUM, SERUM 4.3 MMOL/L (3.5-5.3); SODIUM, SERUM 139 MMOL/L (135-148)
[2016-09-23 05:36] LABS: TROPONIN I 0.19 NG/ML (<0.05)
[2016-09-24 06:50] LABS: INTERNATIONAL NORMAL RATI 2.9 UNITS (-); PROTIME (NOT ORD) 29.7 SEC (12.0-14.5)
[2016-09-25 05:58] LABS: CALCIUM, SERUM 8.7 MG/DL (8.5-10.4); CHLORIDE, SERUM 93 MMOL/L (96-112); CO2 (CARBON DIOXIDE) 34 MMOL/L (24-34); CREATININE 0.76 MG/DL (0.55-1.02); GFR AFRICAN AMERICAN 93 ML/MIN (>=60); GFR NON AFRICAN AMERICAN 81 ML/MIN (>=60); GLUCOSE, SERUM 83 MG/DL (60-99); POTASSIUM, SERUM 3.6 MMOL/L (3.5-5.3); SODIUM, SERUM 138 MMOL/L (135-148)
[2016-09-25 06:03] LABS: INTERNATIONAL NORMAL RATI 3.2 UNITS (-); PROTIME (NOT ORD) 32.5 SEC (12.0-14.5)
[2016-09-25 06:07] LABS: BUN (BLOOD UREA NITROGEN) 20 MG/DL (6-23)
[2016-09-26 06:56] LABS: INTERNATIONAL NORMAL RATI 3.9 UNITS (-)
[2016-09-26 06:57] LABS: PROTIME (NOT ORD) 37.8 SEC (12.0-14.5)
[2016-09-27 06:20] LABS: INTERNATIONAL NORMAL RATI 1.4 UNITS (-)
[2016-09-27 06:24] LABS: BUN (BLOOD UREA NITROGEN) 20 MG/DL (6-23); CALCIUM, SERUM 8.9 MG/DL (8.5-10.4); CHLORIDE, SERUM 93 MMOL/L (96-112); CO2 (CARBON DIOXIDE) 33 MMOL/L (24-34); CREATININE 0.76 MG/DL (0.55-1.02); GFR AFRICAN AMERICAN 93 ML/MIN (>=60); GFR NON AFRICAN AMERICAN 81 ML/MIN (>=60); GLUCOSE, SERUM 97 MG/DL (60-99); SODIUM, SERUM 137 MMOL/L (135-148)
[2016-09-27 06:26] LABS: POTASSIUM, SERUM 2.9 MMOL/L (3.5-5.3)
[2016-09-27 19:13] LABS: BD FL LYMPH (NOT ORD) 8 %; BD FL SOURCE (NOT ORD) RLL; BF BASO (NOT OF) 0 %; BF LARGE MONONUCLEAR 9 %; BF TOTAL CELL CT (NOT ORD 4172 /MM3; BODY FLUID EOS (NOT ORD) 0 %; BODY FLUID RBC (NOT ORD) 25000 /MM3; BODY FLUID SEG (NOT ORD) 83 %
[2016-09-27 19:36] LABS: ALLENS TEST Pos; BE (BASE EXCESS) 2.8 MEQ/L (0 +/- 2.5); CARBOXYHEMOGLOBIN 0.6 % (0-3); HCO3 (ACTUAL BICARBONATE) 29.5 MEQ/L (23-27); HEMOBLOGIN CONTENT 14.4 G/DL (12-16); INSTRUMENT SERIAL # 11843; METHEMOGLOBIN 0.5 % (0-3); O2 CONTENT 19.4 VOL% (18-24); OPERATOR ID 23712; PCO2 (CO2 TENSION) 54 MMHG (35-45); PO2 (O2 TENSION) 94 MMHG (79-93); SAMPLE Arterial; pH 7.36 (7.37-7.43)
[2016-09-28 06:05] LABS: INTERNATIONAL NORMAL RATI 1.3 UNITS (-); PROTIME (NOT ORD) 15.7 SEC (12.0-14.5)
[2016-09-28 06:18] LABS: PHOSPHORUS, SERUM 4.1 MG/DL (2.5-4.5)
[2016-09-28 06:20] LABS: BASOPHILS 0.1 %; BASOPHILS ABSOLUTE 0.01 10/3/uL (0.0-0.16); EOSINOPHILS 0 %; HEMATOCRIT 38.7 % (36.0-48.0); HEMOGLOBIN 12.3 g/dL (12.0-16.0); IMMATURE GRANULOCYTES 0.6 %; IMMATURE GRANULOCYTES ABSOLUTE 0.07 10/3/uL (0.0-0.11); LYMPHOCYTES 3.8 %; LYMPHOCYTES ABSOLUTE 0.41 10/3/uL (0.67-4.30); MANUAL DIFF NO %; MEAN CORPUS HGB CONC 31.8 g/dL (32.0-36.0); MEAN CORPUSCULAR HEMOGLOB 28.5 pg (26.0-34.0); MEAN CORPUSCULAR VOLUME 89.8 fL (80-100); MEAN PLATELET VOLUME 11.3 fL (9.2-13.0); MONOCYTES 2.4 %; MONOCYTES ABSOLUTE 0.26 10/3/uL (0.21-1.20); NEUTROPHILS 93.1 %; NEUTROPHILS ABSOLUTE 10.09 10/3/uL (2.02-8.40); PLATELET COUNT 153 10/3/uL (150-400); RBC DISTRIBUTION WIDTH 15.6 % (12.0-16.0); RED CELL COUNT 4.31 10/6/uL (4.0-5.6); WHITE BLOOD CELLS 10.8 10/3/uL (4.5-10.5)
[2016-09-29 05:34] LABS: BASOPHILS 0 %; EOSINOPHILS 0 %; HEMOGLOBIN 11.9 g/dL (12.0-16.0); IMMATURE GRANULOCYTES 0.7 %; IMMATURE GRANULOCYTES ABSOLUTE 0.07 10/3/uL (0.0-0.11); LYMPHOCYTES 5.6 %; LYMPHOCYTES ABSOLUTE 0.55 10/3/uL (0.67-4.30); MEAN CORPUS HGB CONC 31.3 g/dL (32.0-36.0); MEAN CORPUSCULAR HEMOGLOB 28.1 pg (26.0-34.0); MEAN CORPUSCULAR VOLUME 89.8 fL (80-100); MEAN PLATELET VOLUME 10.8 fL (9.2-13.0); MONOCYTES 8.5 %; MONOCYTES ABSOLUTE 0.84 10/3/uL (0.21-1.20); NEUTROPHILS 85.2 %; NEUTROPHILS ABSOLUTE 8.44 10/3/uL (2.02-8.40); PLATELET COUNT 183 10/3/uL (150-400); RBC DISTRIBUTION WIDTH 15.4 % (12.0-16.0); RED CELL COUNT 4.23 10/6/uL (4.0-5.6); WHITE BLOOD CELLS 9.9 10/3/uL (4.5-10.5)
[2016-09-29 05:46] LABS: MANUAL DIFF NO %
[2016-09-29 05:47] LABS: CALCIUM, SERUM 9.3 MG/DL (8.5-10.4); CHLORIDE, SERUM 97 MMOL/L (96-112); CO2 (CARBON DIOXIDE) 35 MMOL/L (24-34); CREATININE 1.07 MG/DL (0.55-1.02); GFR AFRICAN AMERICAN 62 ML/MIN (>=60); GFR NON AFRICAN AMERICAN 53 ML/MIN (>=60); SODIUM, SERUM 139 MMOL/L (135-148)
[2016-09-29 05:52] LABS: INTERNATIONAL NORMAL RATI 1.8 UNITS (-)
[2016-09-29 05:53] LABS: BUN (BLOOD UREA NITROGEN) 33 MG/DL (6-23); GLUCOSE, SERUM 152 MG/DL (60-99); POTASSIUM, SERUM 4.2 MMOL/L (3.5-5.3)
[2016-09-29 05:55] LABS: PROTIME (NOT ORD) 20.4 SEC (12.0-14.5)
[2016-09-30 04:56] LABS: BASOPHILS 0.1 %; BASOPHILS ABSOLUTE 0.01 10/3/uL (0.0-0.16); EOSINOPHILS 0.2 %; EOSINOPHILS ABSOLUTE 0.02 10/3/uL (0.0-0.53); HEMATOCRIT 39.2 % (36.0-48.0); HEMOGLOBIN 12.1 g/dL (12.0-16.0); IMMATURE GRANULOCYTES 1.1 %; IMMATURE GRANULOCYTES ABSOLUTE 0.09 10/3/uL (0.0-0.11); LYMPHOCYTES 12.7 %; LYMPHOCYTES ABSOLUTE 1.08 10/3/uL (0.67-4.30); MEAN CORPUS HGB CONC 30.9 g/dL (32.0-36.0); MEAN CORPUSCULAR HEMOGLOB 28.2 pg (26.0-34.0); MEAN CORPUSCULAR VOLUME 91.4 fL (80-100); MEAN PLATELET VOLUME 10.8 fL (9.2-13.0); MONOCYTES 14.3 %; MONOCYTES ABSOLUTE 1.21 10/3/uL (0.21-1.20); NEUTROPHILS 71.6 %; NEUTROPHILS ABSOLUTE 6.07 10/3/uL (2.02-8.40); PLATELET COUNT 199 10/3/uL (150-400); RBC DISTRIBUTION WIDTH 15.3 % (12.0-16.0); RED CELL COUNT 4.29 10/6/uL (4.0-5.6); WHITE BLOOD CELLS 8.5 10/3/uL (4.5-10.5)
[2016-09-30 04:57] LABS: MANUAL DIFF NO %
[2016-09-30 05:10] LABS: PROTIME (NOT ORD) 22.5 SEC (12.0-14.5)
[2016-09-30 05:12] LABS: CALCIUM, SERUM 8.9 MG/DL (8.5-10.4); CHLORIDE, SERUM 95 MMOL/L (96-112); CO2 (CARBON DIOXIDE) 39 MMOL/L (24-34); CREATININE 0.91 MG/DL (0.55-1.02); GFR AFRICAN AMERICAN 75 ML/MIN (>=60); GFR NON AFRICAN AMERICAN 65 ML/MIN (>=60); GLUCOSE, SERUM 125 MG/DL (60-99); POTASSIUM, SERUM 4.1 MMOL/L (3.5-5.3); SODIUM, SERUM 140 MMOL/L (135-148); VANCOMYCIN TROUGH 21.8 MCG/ML (10.0-20.0)
[2016-09-30 05:17] LABS: BUN (BLOOD UREA NITROGEN) 27 MG/DL (6-23)
[2016-10-01 06:15] LABS: BASOPHILS 0.2 %; BASOPHILS ABSOLUTE 0.02 10/3/uL (0.0-0.16); EOSINOPHILS 0.7 %; EOSINOPHILS ABSOLUTE 0.07 10/3/uL (0.0-0.53); HEMOGLOBIN 12.4 g/dL (12.0-16.0); IMMATURE GRANULOCYTES 0.7 %; IMMATURE GRANULOCYTES ABSOLUTE 0.07 10/3/uL (0.0-0.11); LYMPHOCYTES 10.5 %; LYMPHOCYTES ABSOLUTE 1.12 10/3/uL (0.67-4.30); MEAN CORPUSCULAR HEMOGLOB 28.4 pg (26.0-34.0); MEAN CORPUSCULAR VOLUME 91.5 fL (80-100); MEAN PLATELET VOLUME 10.2 fL (9.2-13.0); MONOCYTES 15.1 %; NEUTROPHILS 72.8 %; NEUTROPHILS ABSOLUTE 7.75 10/3/uL (2.02-8.40); PLATELET COUNT 172 10/3/uL (150-400); RBC DISTRIBUTION WIDTH 15.3 % (12.0-16.0); RED CELL COUNT 4.37 10/6/uL (4.0-5.6); WHITE BLOOD CELLS 10.6 10/3/uL (4.5-10.5)
[2016-10-01 06:17] LABS: INTERNATIONAL NORMAL RATI 2.1 UNITS (-); MANUAL DIFF NO %
[2016-10-01 06:31] LABS: BUN (BLOOD UREA NITROGEN) 25 MG/DL (6-23); CALCIUM, SERUM 8.9 MG/DL (8.5-10.4); CHLORIDE, SERUM 99 MMOL/L (96-112); GFR AFRICAN AMERICAN 103 ML/MIN (>=60); GFR NON AFRICAN AMERICAN 89 ML/MIN (>=60); GLUCOSE, SERUM 101 MG/DL (60-99); POTASSIUM, SERUM 4.2 MMOL/L (3.5-5.3); SODIUM, SERUM 137 MMOL/L (135-148)
[2016-10-01 06:33] LABS: CO2 (CARBON DIOXIDE) 32 MMOL/L (24-34)
[2016-10-02 05:39] LABS: PROTIME (NOT ORD) 22.9 SEC (12.0-14.5)
[2016-10-03 05:40] LABS: BASOPHILS 0.1 %; BASOPHILS ABSOLUTE 0.01 10/3/uL (0.0-0.16); EOSINOPHILS 1.7 %; EOSINOPHILS ABSOLUTE 0.14 10/3/uL (0.0-0.53); HEMATOCRIT 39.2 % (36.0-48.0); HEMOGLOBIN 12.3 g/dL (12.0-16.0); IMMATURE GRANULOCYTES 2.2 %; IMMATURE GRANULOCYTES ABSOLUTE 0.18 10/3/uL (0.0-0.11); LYMPHOCYTES 13.5 %; MEAN CORPUS HGB CONC 31.4 g/dL (32.0-36.0); MEAN CORPUSCULAR HEMOGLOB 28.2 pg (26.0-34.0); MEAN CORPUSCULAR VOLUME 89.9 fL (80-100); MEAN PLATELET VOLUME 10.2 fL (9.2-13.0); MONOCYTES 14.6 %; MONOCYTES ABSOLUTE 1.19 10/3/uL (0.21-1.20); NEUTROPHILS 67.9 %; NEUTROPHILS ABSOLUTE 5.55 10/3/uL (2.02-8.40); PLATELET COUNT 198 10/3/uL (150-400); RBC DISTRIBUTION WIDTH 14.9 % (12.0-16.0); RED CELL COUNT 4.36 10/6/uL (4.0-5.6); WHITE BLOOD CELLS 8.2 10/3/uL (4.5-10.5)
[2016-10-03 05:41] LABS: MANUAL DIFF NO %
[2016-10-03 05:46] LABS: INTERNATIONAL NORMAL RATI 1.8 UNITS (-); PROTIME (NOT ORD) 20.6 SEC (12.0-14.5)
[2016-10-03 05:53] LABS: CALCIUM, SERUM 9.2 MG/DL (8.5-10.4); CHLORIDE, SERUM 97 MMOL/L (96-112); CREATININE 0.79 MG/DL (0.55-1.02); GFR AFRICAN AMERICAN 89 ML/MIN (>=60); GFR NON AFRICAN AMERICAN 77 ML/MIN (>=60); GLUCOSE, SERUM 93 MG/DL (60-99); POTASSIUM, SERUM 3.9 MMOL/L (3.5-5.3); SODIUM, SERUM 139 MMOL/L (135-148)
[2016-10-03 05:56] LABS: BUN (BLOOD UREA NITROGEN) 21 MG/DL (6-23); CO2 (CARBON DIOXIDE) 37 MMOL/L (24-34)
[2016-10-04 05:54] LABS: INTERNATIONAL NORMAL RATI 1.7 UNITS (-); PROTIME (NOT ORD) 19.7 SEC (12.0-14.5)
[2016-10-05 06:25] LABS: INTERNATIONAL NORMAL RATI 1.7 UNITS (-); PROTIME (NOT ORD) 20.1 SEC (12.0-14.5)
[2016-10-06 05:41] LABS: INTERNATIONAL NORMAL RATI 1.7 UNITS (-); PROTIME (NOT ORD) 19.7 SEC (12.0-14.5)
[2016-10-06 05:58] LABS: BUN (BLOOD UREA NITROGEN) 19 MG/DL (6-23); CALCIUM, SERUM 9.5 MG/DL (8.5-10.4); CHLORIDE, SERUM 95 MMOL/L (96-112); CO2 (CARBON DIOXIDE) 33 MMOL/L (24-34); GFR AFRICAN AMERICAN 76 ML/MIN (>=60); GFR NON AFRICAN AMERICAN 66 ML/MIN (>=60); GLUCOSE, SERUM 102 MG/DL (60-99); POTASSIUM, SERUM 4.1 MMOL/L (3.5-5.3); SODIUM, SERUM 139 MMOL/L (135-148)
[2016-10-07 07:18] LABS: INTERNATIONAL NORMAL RATI 1.9 UNITS (-); PROTIME (NOT ORD) 21.4 SEC (12.0-14.5)
[2016-10-08 08:50] LABS: HEMATOCRIT 37.9 % (36.0-48.0); HEMOGLOBIN 12.1 g/dL (12.0-16.0); MEAN CORPUS HGB CONC 31.9 g/dL (32.0-36.0); MEAN CORPUSCULAR HEMOGLOB 28.5 pg (26.0-34.0); MEAN CORPUSCULAR VOLUME 89.2 fL (80-100); MEAN PLATELET VOLUME 10.7 fL (9.2-13.0); PLATELET COUNT 200 10/3/uL (150-400); RBC DISTRIBUTION WIDTH 15.3 % (12.0-16.0); RED CELL COUNT 4.25 10/6/uL (4.0-5.6)
[2016-10-08 08:51] LABS: MANUAL DIFF YES %
[2016-10-08 08:59] LABS: INTERNATIONAL NORMAL RATI 1.9 UNITS (-); PROTIME (NOT ORD) 21.8 SEC (12.0-14.5)
[2016-10-08 09:41] LABS: BAND NEUTROPHILS 2 %; EOSINOPHILS 2 %; EOSINOPHILS ABSOLUTE (CALC) 0.18 10/3/uL (0.0-0.53); LYMPHOCYTES 12 %; LYMPHOCYTES ABSOLUTE (CALC) 1.08 10/3/uL (0.67-4.30); MONOCYTES 10 %; NEUTROPHILS ABSOLUTE (CALC) 6.84 10/3/uL (2.02-8.40); PLATELET ESTIMATE ADQ (ADEQUATE); RBC MORPHOLOGY NORM (NORMAL); SEGMENTED NEUTROPHIL (0) 74 %; TOTAL NUCLEATED CELLS 100
[2016-10-09 06:38] LABS: INTERNATIONAL NORMAL RATI 2.4 UNITS (-)
== END 2016-10-09 18:12 | DRG 166 ==
LOC: ER 04:07 → ER/OF 05:37 → 5NO 06:34 → SDC/OF 09-27 18:02 → IMCU 09-27 21:20 → 2SO 09-28 15:00
PROVIDERS: Hospitalist; Internal Medicine; Nurse Practitioner Family; Specialist; Student in an Organized Health Care Education/Training Program
DX: C34.11 Malignant neoplasm of upper lobe, right bronchus or lung (principal); I50.23 Acute on chronic systolic (congestive) heart failure; J96.21 Acute and chronic respiratory failure with hypoxia; J15.1 Pneumonia due to Pseudomonas; J15.212 Pneumonia due to Methicillin resistant Staphylococcus aureus; C77.1 Secondary and unspecified malignant neoplasm of intrathoracic lymph nodes; C79.51 Secondary malignant neoplasm of bone; I48.92 Unspecified atrial flutter; I48.0 Paroxysmal atrial fibrillation; N39.0 Urinary tract infection, site not specified; C79.89 Secondary malignant neoplasm of other specified sites; Z99.81 Dependence on supplemental oxygen; R53.81 Other malaise; J44.9 Chronic obstructive pulmonary disease, unspecified; Z51.5 Encounter for palliative care; E03.9 Hypothyroidism, unspecified; E78.5 Hyperlipidemia, unspecified; E11.9 Type 2 diabetes mellitus without complications; I25.10 Atherosclerotic heart disease of native coronary artery without angina pectoris; G47.33 Obstructive sleep apnea (adult) (pediatric); I25.5 Ischemic cardiomyopathy; E78.00 Pure hypercholesterolemia, unspecified; G89.4 Chronic pain syndrome; I34.0 Nonrheumatic mitral (valve) insufficiency; Z82.49 Family history of ischemic heart disease and other diseases of the circulatory system; Z95.5 Presence of coronary angioplasty implant and graft; Z86.73 Personal history of transient ischemic attack (TIA), and cerebral infarction without residual deficits; Z98.890 Other specified postprocedural states; Z95.810 Presence of automatic (implantable) cardiac defibrillator; Z88.5 Allergy status to narcotic agent; Z88.6 Allergy status to analgesic agent
CPT/HCPCS: 36415; 36600; 71010; 77280; 77290; 77293; 77295; 77300; 77334; 77412; 78815; 80048; 80053; 80076; 80202; 82550; 82553; 82805; 82962; 83735; 83880; 84100; 84443; 84484; 85025; 85610; 85730; 86900; 86901; 87015; 87070; 87077; 87102; 87116; 87186; 87205; 88112; 88305; 89051; 93005; 94640; 94660; 96374; 97110-GP; 97116-GP; 97162-GP; 97164-GP; 99285; A9270-GY; A9552; C1757; C8929; G8978-CK-GP; G8979-CJ-GP; J1160; J1170; J2250; J2270; J2370; J2405; J2543; J2710; J3010; J3370; J3430; P9059; Q9957